=== PATIENT | male | born 1955 | race Caucasian/White ===

== ENCOUNTER 2017-06-12 09:30 | Emergency (ER) | payer OTHER ==
[~2017-06-12] VITALS: Ht 167.6 cm; Wt 87.0 kg
[~2017-06-12 09:30] MED LIST: APIX5TAB PO; ASPI1TAB69 PO; ATOR40TA16 PO; CARV25TA PO; CLIN300C5 PO; GABA300C5 PO; GEMF600T PO; HYDR-3533 PO; METF500T4 PO; NITR0.4S SL; ZOFR4TAB3 SL
[2017-06-12 09:38] VITALS: BP 112/52; PULSE 65; RESP 16; TEMP 97.4
[2017-06-12] MEDS ORDERED: VITA1000 PO (09:55)
[2017-06-12] MEDS ORDERED: LISI-519 PO (09:55)
[2017-06-12] MEDS ORDERED: ASPI81CH7 CHEW (09:55)
[2017-06-12] MEDS ORDERED: FLUO20CA12 PO (09:55)
[2017-06-12] MEDS ORDERED: LORATADINE 10 MG TAB PO ONE (10:15)
[2017-06-12] MEDS ORDERED: DEXAMETHASONE SOD PHOS 20 MG/5 ML VIAL IM ONE (10:15)
[2017-06-12] MEDS ORDERED: diphenhydrAMINE HCL 50 MG/ML VIAL IM ONE (10:15)
--- NOTE | 2017-06-12 10:20 | PD ---
HPI Chief Complaint: Skin Problem Time Seen by Provider: 10:08 Travel History International Travel<30 days: No Contact w/Intl Traveler<30days: No Traveled to known affect area: No History of Present Illness HPI 62-year-old male presents to the emergency room for evaluation of itchy, burning rash to his upper body that started yesterday. It started in the right upper arm and has since spread to his left upper arm and upper back. Patient took Benadryl last night and applied calamine lotion without significant relief in symptoms. He denies any new exposures to medication, food, or environment. He has had a lot of emotional stress lately because his dog recently got a spinal injury. Patient denies sore throat, difficulty breathing, chest pain, or shortness of breath. PFSH Past Medical History Cardiovascular Problems: Yes High Cholesterol: Yes Cerebrovascular Accident: Yes Coronary Artery Disease: Yes Diabetes: Yes Patient Takes Glucophage: No Diminished Hearing: No Hypertension: Yes Myocardial Infarction: Yes (x14 since pt was 33 years old) Tetanus Vaccination: < 5 Years Past Surgical History Cardiac Surgery: Yes (TRIPLE BYPASS) Coronary Artery Bypass Graft: Yes Pacemaker: Yes (defibulator) Tonsillectomy: Yes Social History Alcohol Use: Yes (RARE) Tobacco Use: Yes (1 PPD) Substance Use: No Allergies-Medications (Allergen,Severity, Reaction): Coded Allergies: No Known Allergies (Unverified Adverse Reaction, Unknown, 06/12/17) Reported Meds & Prescriptions Reported Meds & Active Scripts Active Reported Vitamin D-1000 (Cholecalciferol) 1,000 Unit Tab 1,000 Units PO DAILY Fluoxetine (Fluoxetine HCl) 20 Mg Capsule 20 Mg PO DAILY Lisinopril 5 Mg Tab 5 Mg PO DAILY Aspirin Children's (Aspirin) 81 Mg Chew 81 Mg CHEW DAILY Nitrostat SL (Nitroglycerin) 0.4 Mg Subl 0.4 Mg SL DIRECTED PRN 1 tablet under the tongue as needed for chest pain. Repeat every 5 minutes for a total of 3 DOSES or call 911 if NO relief. Gemfibrozil 600 Mg Tab 600 Mg PO BIDAC Take 30 minutes prior to breakfast and dinner. Gabapentin 300 Mg Cap 300 Mg PO BID Carvedilol 25 Mg Tab 25 Mg PO BID Atorvastatin (Atorvastatin Calcium) 40 Mg Tab 40 Mg PO HS Review of Systems Except as stated in HPI: all other systems reviewed are Neg Physical Exam Narrative GENERAL: Well-nourished, well-developed male in no acute distress. Afebrile. Ambulatory. SKIN: Focused skin assessment warm/dry. Multiple large erythematous maculopapular plaques to bilateral upper extremities and back. HEAD: Normocephalic. EYES: No scleral icterus. No injection or drainage. NECK: Supple, trachea midline. No JVD or lymphadenopathy. ENT: Mucosa pink and moist. No erythema or exudates. No uvular edema. No uvular , palatal, or tonsillar deviation. Airway patent. CARDIOVASCULAR: Regular rate and rhythm without murmurs, gallops, or rubs. RESPIRATORY: Breath sounds equal bilaterally. No accessory muscle use. No crackles, rales, wheezes, or rhonchi. Data Data Last Documented VS Vital Signs Date Time Temp Pulse Resp B/P (MAP) Pulse Ox O2 Delivery O2 Flow Rate FiO2 06/12/17 09:38 97.4 65 16 112/52 (72) Orders Orders Diphenhydramine Inj (Benadryl Inj) (06/12/17 10:15) Dexamethasone Inj (Decadron Inj) (06/12/17 10:15) Loratadine (Claritin) (06/12/17 10:15) MDM Medical Decision Making Medical Screen Exam Complete: Yes Emergency Medical Condition: Yes Medical Record Reviewed: Yes Differential Diagnosis Urticaria, allergic reaction, anaphylaxis Narrative Course 62-year-old male presents to the emergency room for evaluation of an itching, burning rash to his bilateral upper extremities and back hurting yesterday. Patient denies any new environmental, medication, or food exposures. Physical exam is consistent with urticaria. Likely stress-induced. No evidence of anaphylaxis. Patient given Benadryl, guarding, and Decadron in the emergency room. He'll be discharged with prescription for prednisone. Told to follow-up with primary care physician or return for worsening symptoms. He understands and agrees to plan. Diagnosis Primary Impression: Urticaria Referrals: Primary Care Physician Additional Instructions: Rest and drink plenty of fluids. Take prednisone as directed, until gone. Take Benadryl and ranitidine as directed on box for the next 24-48 hours. Follow-up with a primary care physician. Return to the emergency room for worsening symptoms. Med/Other Pt SpecificInfo: Prescription(s) given Disposition: 01 DISCHARGE HOME Condition: Stable Izabel Cummings Jun 12, 2017 10:20
[2017-06-12] MEDS ORDERED: PRED20 PO (10:21)
== END 2017-06-12 10:32 | disposition home or self-care (01) ==
LOC: PHEFT 09:30
DX: L50.9 Urticaria, unspecified (principal)
CPT/HCPCS: 96372; 99284; J1100; J1200

== ENCOUNTER 2017-08-29 07:54 | Emergency (ER) | payer OTHER ==
[~2017-08-29] VITALS: Ht 167.6 cm; Wt 88.1 kg
[~2017-08-29 07:54] MED LIST changes: -APIX5TAB PO; -ASPI1TAB69 PO; +ASPI81CH7 CHEW; -CLIN300C5 PO; +FLUO20CA12 PO; -HYDR-3533 PO; +LISI-519 PO; -METF500T4 PO; +PRED20 PO; +VITA1000 PO; -ZOFR4TAB3 SL
[2017-08-29 08:03] VITALS: BP 135/71; PULSE 70; RESP 18; O2SAT 95
[2017-08-29 08:07] VITALS: BP 135/71; PULSE 70; RESP 18; O2SAT 94
[2017-08-29 09:00] VITALS: O2SAT 95
[2017-08-29] MEDS ORDERED: predniSONE 20 MG TAB PO SCH (09:00)
--- NOTE | 2017-08-29 09:00 | PD ---
HPI Chief Complaint: Respiratory Symptoms Time Seen by Provider: 08:48 Travel History International Travel<30 days: No Contact w/Intl Traveler<30days: No Traveled to known affect area: No History of Present Illness HPI This patient complains of shortness of breath and cough and congestion. Duration is 2 days. Severity is moderate. He has symptoms that are worse with exertion. He has not had any chest pain or pressure or tightness or heaviness. No fever. No pleuritic pain. No alleviating factors. Symptoms exacerbated by his smoking for 49 years. He does not use any inhalers or oxygen or nebulizers at home. PFSH Past Medical History Hx Anticoagulant Therapy: Yes Cardiovascular Problems: Yes High Cholesterol: Yes Cerebrovascular Accident: Yes Coronary Artery Disease: Yes Diabetes: Yes Patient Takes Glucophage: No Diminished Hearing: No Hypertension: Yes Myocardial Infarction: Yes (x14 since pt was 33 years old) Past Surgical History Cardiac Surgery: Yes (TRIPLE BYPASS) Coronary Artery Bypass Graft: Yes Pacemaker: Yes (defibulator) Tonsillectomy: Yes Social History Alcohol Use: Yes (RARE) Tobacco Use: Yes (1 PPD) Substance Use: No Allergies-Medications (Allergen,Severity, Reaction): Coded Allergies: No Known Allergies (Unverified Adverse Reaction, Unknown, 06/12/17) Reported Meds & Prescriptions Reported Meds & Active Scripts Active Prednisone 20 Mg Tab 40 Mg PO DAILY Take 40 mg (2 tablets) daily for 5 days Ventolin Hfa 18 GM Inh (Albuterol Sulfate) 90 Mcg/Act Aer 2 Puff INH Q4H PRN Prednisone 20 Mg Tab 20 Mg PO DAILY 5 Days Reported Vitamin D-1000 (Cholecalciferol) 1,000 Unit Tab 1,000 Units PO DAILY Fluoxetine (Fluoxetine HCl) 20 Mg Capsule 20 Mg PO DAILY Lisinopril 5 Mg Tab 5 Mg PO DAILY Aspirin Children's (Aspirin) 81 Mg Chew 81 Mg CHEW DAILY Nitrostat SL (Nitroglycerin) 0.4 Mg Subl 0.4 Mg SL DIRECTED PRN 1 tablet under the tongue as needed for chest pain. Repeat every 5 minutes for a total of 3 DOSES or call 911 if NO relief. Gemfibrozil 600 Mg Tab 600 Mg PO BIDAC Take 30 minutes prior to breakfast and dinner. Gabapentin 300 Mg Cap 300 Mg PO BID Carvedilol 25 Mg Tab 25 Mg PO BID Atorvastatin (Atorvastatin Calcium) 40 Mg Tab 40 Mg PO HS Review of Systems General / Constitutional: No: Fever Eyes: No: Visual changes HENT: Positive: Congestion, No: Headaches Cardiovascular: No: Chest Pain or Discomfort Respiratory: Positive: Cough, Shortness of Breath, Wheezing Gastrointestinal: No: Abdominal Pain Genitourinary: No: Dysuria Musculoskeletal: No: Pain Skin: No Rash Neurologic: No: Weakness Psychiatric: No: Depression Endocrine: No: Polydipsia Hematologic/Lymphatic: No: Easy Bruising Physical Exam Narrative GENERAL: Well-nourished, well-developed patient with cough and congestion and shortness of breath . SKIN: Focused skin assessment reveals no rash and nodules. Skin is Warm and dry. HEAD: Atraumatic. Normocephalic. EYES: Pupils equal and round. No scleral icterus. No injection or drainage. ENT: No nasal bleeding or discharge. Mucous membranes pink and moist. NECK: Trachea midline. No JVD. CARDIOVASCULAR: Regular rate and rhythm. No murmur appreciated. RESPIRATORY: No accessory muscle use. Some rhonchi and expiratory wheezing. Breath sounds equal bilaterally. GASTROINTESTINAL: Abdomen soft, non-tender, nondistended. Hepatic and splenic margins not palpable. MUSCULOSKELETAL: No obvious deformities. No clubbing. No cyanosis. No edema. NEUROLOGICAL: Awake and alert. No obvious cranial nerve deficits. Motor grossly within normal limits. Normal speech. PSYCHIATRIC: Appropriate mood and affect; insight and judgment normal. Data Data Last Documented VS Vital Signs Date Time Temp Pulse Resp B/P (MAP) Pulse Ox O2 Delivery O2 Flow Rate FiO2 08/29/17 09:38 20 99 Nasal Cannula 2.00 08/29/17 08:07 70 Orders Orders Chest, Single Ap (08/29/17 ) Influenzae A/B Antigen (08/29/17 08:54) Electrocardiogram (08/29/17 08:54) Ecg Monitoring (08/29/17 08:54) Oximetry (08/29/17 08:54) Albuterol-Ipratropium Neb (Duoneb Neb) (08/29/17 09:00) Prednisone (Deltasone) (08/29/17 09:00) Iv Access Insert/Monitor (08/29/17 09:00) Complete Blood Count With Diff (08/29/17 09:00) Basic Metabolic Panel (Bmp) (08/29/17 09:00) Labs Laboratory Tests Test 08/29/17 09:10 White Blood Count 11.2 TH/MM3 Red Blood Count 4.38 MIL/MM3 Hemoglobin 13.9 GM/DL Hematocrit 41.7 % Mean Corpuscular Volume 95.2 FL Mean Corpuscular Hemoglobin 31.6 PG Mean Corpuscular Hemoglobin Concent 33.2 % Red Cell Distribution Width 14.0 % Platelet Count 224 TH/MM3 Mean Platelet Volume 8.9 FL Neutrophils (%) (Auto) 86.4 % Lymphocytes (%) (Auto) 9.1 % Monocytes (%) (Auto) 3.5 % Eosinophils (%) (Auto) 0.8 % Basophils (%) (Auto) 0.2 % Neutrophils # (Auto) 9.7 TH/MM3 Lymphocytes # (Auto) 1.0 TH/MM3 Monocytes # (Auto) 0.4 TH/MM3 Eosinophils # (Auto) 0.1 TH/MM3 Basophils # (Auto) 0.0 TH/MM3 CBC Comment DIFF FINAL Differential Comment Blood Urea Nitrogen 20 MG/DL Creatinine 1.06 MG/DL Random Glucose 134 MG/DL Calcium Level 9.3 MG/DL Sodium Level 142 MEQ/L Potassium Level 4.8 MEQ/L Chloride Level 111 MEQ/L Carbon Dioxide Level 23.5 MEQ/L Anion Gap 8 MEQ/L Estimat Glomerular Filtration Rate 70 ML/MIN [facility] Medical Decision Making Medical Screen Exam Complete: Yes Emergency Medical Condition: Yes Medical Record Reviewed: Yes Differential Diagnosis COPD, pneumonia, bronchitis Narrative Course I have reviewed the patient's electronic medical record. 9 AM I evaluated him. Ordered him a series of 3 nebulizers and a dose of prednisone Saturations running 92% on room air 1140 recheck reveals he is breathing much better and saturations are improved Chest x-ray results are reviewed with him. Has some atelectasis in the left base, less likely infectious infiltrate CBC metabolic profiles are normal Influenza swab negative We had a discussion regarding in about therapy. He very definitively does not want antibiotic therapy is absolutely necessary More likely has viral bronchitis rather than bacterial I prescribed him albuterol inhaler and 5 days of prednisone Diagnosis Primary Impression: Acute bronchitis Qualified Codes: J20.9 - Acute bronchitis, unspecified Additional Impressions: Shortness of breath Wheezing Additional Instructions: The patient was advised to follow up with their physician and return if they worsen. Med/Other Pt SpecificInfo: Prescription(s) given Scripts Prednisone (Prednisone) 20 Mg Tab 40 MG PO DAILY, #10 TAB 0 Refills Take 40 mg (2 tablets) daily for 5 days Prov: Anshul Schroeder MD 08/29/17 Albuterol 18 GM Inh (Ventolin Hfa 18 GM Inh) 90 Mcg/Act Aer 2 PUFF INH Q4H Y for SHORTNESS OF BREATH, #1 INHALER 0 Refills Prov: Anshul Schroeder MD 08/29/17 Disposition: 01 DISCHARGE HOME Condition: Stable Anshul Schroeder MD Aug 29, 2017 09:00
[2017-08-29 09:19] LABS: AUTOMATED NEUTROPHIL # 9.7 TH/MM3 (1.8-7.7); BASOPHIL % 0.2 % (0.0-2.0); EOSINOPHIL # 0.1 TH/MM3 (0-0.4); EOSINOPHIL % 0.8 % (0.0-4.0); HEMATOCRIT 41.7 % (39.0-51.0); HEMOGLOBIN 13.9 GM/DL (13.0-17.0); LYMPH % 9.1 % (9.0-44.0); MEAN CELL VOLUME 95.2 FL (80.0-100.0); MEAN CORPUSCULAR HEMOGLOBIN 31.6 PG (27.0-34.0); MEAN CORPUSCULAR HGB CONC 33.2 % (32.0-36.0); MEAN PLATELET VOLUME 8.9 FL (7.0-11.0); MONO % 3.5 % (0.0-8.0); MONOCYTE # 0.4 TH/MM3 (0-0.9); NEUT % 86.4 % (16.0-70.0); PLATELET COUNT 224 TH/MM3 (150-450); RED BLOOD COUNT 4.38 MIL/MM3 (4.50-5.90); WHITE BLOOD COUNT 11.2 TH/MM3 (4.0-11.0)
[2017-08-29] MEDS: RESP: ALBUTEROL 2.5 MG/IPRATROPIUM 0.5 MG NEB (SCH) INH (09:21)
--- NOTE | 2017-08-29 09:31 | RADRPT ---
EXAM DATE/TIME: 08/29/2017 09:01 [place] COMPARISON: CHEST PA & LAT, June 26, 2016, 22:36. INDICATIONS : Short of breath MEDICAL HISTORY : Cardiovascular disease. Myocardial infarction. SURGICAL HISTORY : CABG. Pacemaker. bilateral lower extremity stents ENCOUNTER: Initial ACUITY: 1 day PAIN SCORE: 0/10 LOCATION: Bilateral chest FINDINGS: Stable median sternotomy wires with single lead AICD device in place. Elevation of the left hemidiaph ragm with associated left lower lobe airspace disease. Cardiac silhouette is enlarged. Remainder of t he exam is unchanged. CONCLUSION: 1. Left lower lobe airspace disease and associated volume loss, likely reflecting atelectasis. Howeve r, developing pneumonia or aspiration cannot be excluded in the appropriate clinical setting. Rarely, an endobronchial lesion may result in airspace consolidation and volume loss. 2. Compensated cardiomegaly. Bahman Renae MD on August 29, 2017 at 9:26 Board Certified Radiologist. This report was verified electronically.
[2017-08-29 09:33] LABS: BICARBONATE 23.5 MEQ/L (21.0-32.0); CALCIUM 9.3 MG/DL (8.5-10.1); CREATININE 1.06 MG/DL (0.60-1.30)
[2017-08-29 09:38] VITALS: RESP 20; O2SAT 99
[2017-08-29] MEDS ORDERED: PRED20 PO (11:39)
[2017-08-29] MEDS ORDERED: VENTAER INH (11:39)
--- NOTE | 2017-08-30 18:27 | EKG ---
Date Performed: 08/29/2017 Time Performed: 08:08:20 PTAGE: 62 years EKG: Sinus rhythm WITH SINUS ARRHYTHMIA POSSIBLE LEFT ATRIAL ENLARGEMENT MARKED LEFT AXIS DEVIATION LEFT BUNDLE BRANCH BLOCK ABNORMAL ECG NO PREVIOUS TRACING DOCTOR: Kasi Burkett Interpretating Date/Time 08/30/2017 18:25:23
== END 2017-08-29 12:10 | disposition home or self-care (01) ==
LOC: NEPC 07:54
DX: J20.9 Acute bronchitis, unspecified (principal); R06.02 Shortness of breath; R06.2 Wheezing; I10 Essential (primary) hypertension; E78.00 Pure hypercholesterolemia, unspecified; I25.10 Atherosclerotic heart disease of native coronary artery without angina pectoris; E11.9 Type 2 diabetes mellitus without complications; I25.2 Old myocardial infarction; F17.210 Nicotine dependence, cigarettes, uncomplicated; Z86.73 Personal history of transient ischemic attack (TIA), and cerebral infarction without residual deficits; Z95.0 Presence of cardiac pacemaker; Z95.1 Presence of aortocoronary bypass graft; Z79.82 Long term (current) use of aspirin; Z79.899 Other long term (current) drug therapy
CPT/HCPCS: 71045; 80048; 85025; 87804; 93005; 94640; 94664; 99285; J7512

== ENCOUNTER 2017-12-12 04:31 | Inpatient (IN) | payer OTHER, MEDICARE ==
[2017-12-12] VITALS (12 sets, daily range): BP systolic 108–153; BP diastolic 53–80; PULSE 53–75; RESP 16–20; TEMP 97.7–98.5; O2SAT 95–98
[~2017-12-12] VITALS: Ht 167.6 cm; Wt 92.0 kg
[~2017-12-12 04:31] MED LIST changes: +VENTAER INH
[2017-12-12] MEDS ORDERED: IODIXANOL 320 MG/ML 10 ML VIAL (for Rad CT) IVCONTRAST ONE (04:32)
[2017-12-12] MEDS ORDERED: SODIUM CHLOR 0.9% 1000 ML INJ 1,000 ML IV ONE (04:34)
--- NOTE | 2017-12-12 04:58 | RADRPT ---
EXAM DATE: 12/12/2017 4:52 AM EDT AGE/SEX: 62 years / Male INDICATIONS: Stroke Alert. Slurred speech with right sided weakness. CLINICAL DATA: This is the patient's initial encounter. Patient reports that signs and symptoms have been present for 1 day and indicates a pain score of 0/10. MEDICAL/SURGICAL HISTORY: Cardiovascular disease. Hypertension. Diabetes mellitus type II. CVA CABG. Pacemaker. RADIATION DOSE: 56.35 CTDI (mGy) COMPARISON: No prior exams available for comparison. Report was called by myself to Dr. Garrett at 4:55 hours. TECHNIQUE: CT of the head without contrast. Using automated exposure control and adjustment of the mA and/or kV according to patient size, radiation dose was kept as low as reasonably achievable to ob tain optimal diagnostic quality images. FINDINGS: There is no evidence for intracranial hemorrhage, mass effect, mass lesions, edema, or extr a-axial fluid collections. The visualized bony structures appear intact. The ventricles are normal size for the patient's age. There are no signs of acute infarction for technique. There is old ence phalomalacia left frontal lobe measures 3.1 cm in size extends all the way to anterior parietal lobe watershed distribution. CONCLUSION: Old infarction on the left and no acute hemorrhage or mass effect. Electronically signed by: Helio Garcia MD 12/12/2017 4:56 AM EDT
[2017-12-12 05:04] LABS: PROTHROMBIN TIME - PATIENT 10.1 SEC (9.8-11.6)
--- NOTE | 2017-12-12 05:33 | RADRPT ---
CORRECTED REPORT: Dec 13 2017 EXAM DATE: 12/12/2017 5:15 AM EDT AGE/SEX: 62 years / Male INDICATIONS: Stroke Alert. Slurred speech with right sided weakness. CLINICAL DATA: This is the patient's initial encounter. Patient reports that signs and symptoms have been present for 1 day and indicates a pain score of 0/10. MEDICAL/SURGICAL HISTORY: Cardiovascular disease. Hypertension. Diabetes mellitus type II. CVA CABG. Pacemaker. RADIATION DOSE: 10.60 CTDI (mGy) ; Combined studies COMPARISON: No prior exams available for comparison. TECHNIQUE: Volumetric scanning was performed using a multi-row detector CT scanner during bolus infus ion of 100 ml Visipaque 320 (iodixanol) nonionic water-soluble contrast as a cumulative dose for mult iple exams. The data was post processed with a variety of visualization algorithms including full vol ume maximum intensity projection, multi-planar sliding thin slab reformation, curved planar reformati on, and surface rendering techniques. Using automated exposure control and adjustment of the mA and/o r kV according to patient size, radiation dose was kept as low as reasonably achievable to obtain opt imal diagnostic quality images. FINDINGS: There are atherosclerotic changes involving multiple small vessel branches bilaterally particularly M CA's without any abrupt cut off or filling defects. The left MCA branches demonstrate fairly signific ant atherosclerotic changes without any definite filling defects or abrupt cut off, however there chinyere ears to be diminished flow involving the left distal MCA branches as compared to the right side. Athe rosclerotic plaquing and calcifications are present involving bilateral internal carotid arteries par ticularly in the region of the ciphon. There is an approximate 1.2 cm submandibular duct stone on the right side. There are tiny nodules within the right thyroid gland most likely benign. CONCLUSION: 1. Diminished flow identified within the left MCA appears to be related to fairly significant atheros clerotic disease without any filling defects or abrupt cut off. Electronically signed by: Helio Garcia MD 12/12/2017 5:31 AM EDT Electronically signed by: Helio Garcia MD 12/13/2017 8:38 PM EDT
[2017-12-12 05:39] LABS: TROPONIN I 0.3 NG/ML (0.02-0.05)
--- NOTE | 2017-12-12 05:58 | PD ---
HPI Chief Complaint: Stroke Alert Time Seen by Provider: 04:34 Travel History International Travel<30 days: No Contact w/Intl Traveler<30days: No Traveled to known affect area: No History of Present Illness HPI 62-year-old male presents to the emergency department from home by EMS transport after noticing at 3:50 AM that he had increased weakness to the right upper extremity and right lower extremity. Patient has history of peripheral neuropathy and uses a cane at all times but denies having any previous weakness to the right arm or right leg. Upon EMS arrival patient was identified to be flaccid to the right arm and right leg and a stroke alert was called from the field. Patient denies any headache change in mentation visual disturbance difficulty swallowing or change in speech. Patient denies any left-sided symptoms. Patient denies previous stroke. Patient has extensive past medical history including CAD NM and multiple stents defibrillator placement 2 diabetes dyslipidemia and hypertension. Patient takes no blood thinning agents except an aspirin daily. Patient had no injury or fall. Patient denies any coagulopathy or clotting disorder. Patient states that he typically is awake all night and sleeps during the day. Patient had been watching TV for several hours but has been moving about in his chair without any difficulty and noticed for the first time when he was trying to stand up to go brush his teeth in preparation for going to bed that he had significant right upper extremity and right lower extremity weakness. Patient denies having any fall. Paramedics report that upon their arrival and assessment patient clearly had flaccid right upper extremity and right lower extremity. Patient presents here with inability to use the right upper extremity or right lower extremity. Patient has no assembler strength. Patient seems to have mild neglect. Patient has no other concerns or complaints. Patient denies chest pain or shortness of breath. Patient had no nausea or vomiting. Patient denies any abdominal pain or recent febrile illness. PFSH Past Medical History Narrative Medical Review of medical record CAD NM dyslipidemia hypertension CVA patient denies diabetes CAD AICD cardiac catheterization with multiple stents CABG tobaccoism; nursing notes reviewed Hx Anticoagulant Therapy: Yes Cardiovascular Problems: Yes High Cholesterol: Yes Cerebrovascular Accident: Yes Coronary Artery Disease: Yes Diabetes: Yes Diminished Hearing: No Hypertension: Yes Myocardial Infarction: Yes (x14 since pt was 33 years old) Past Surgical History Cardiac Surgery: Yes (TRIPLE BYPASS) Coronary Artery Bypass Graft: Yes Pacemaker: Yes (defibulator) Tonsillectomy: Yes Social History Alcohol Use: Yes (RARE) Tobacco Use: Yes (1 PPD) Substance Use: No Allergies-Medications (Allergen,Severity, Reaction): Coded Allergies: No Known Allergies (Unverified Adverse Reaction, Unknown, 12/12/17) Reported Meds & Prescriptions Reported Meds & Active Scripts Active Reported Vitamin D-1000 (Cholecalciferol) 1,000 Unit Tab 1,000 Units PO DAILY Probiotic (Lactobacillus Acidophilus) 10 Billion Cell Cap 3 Cap PO DAILY Mirtazapine 7.5 Mg Tab 7.5 Mg PO HS Vitamin D-1000 (Cholecalciferol) 1,000 Unit Tab 1,000 Units PO DAILY Fluoxetine (Fluoxetine HCl) 20 Mg Capsule 20 Mg PO DAILY Lisinopril 5 Mg Tab 5 Mg PO DAILY Aspirin Children's (Aspirin) 81 Mg Chew 81 Mg CHEW DAILY Nitrostat SL (Nitroglycerin) 0.4 Mg Subl 0.4 Mg SL DIRECTED PRN 1 tablet under the tongue as needed for chest pain. Repeat every 5 minutes for a total of 3 DOSES or call 911 if NO relief. Gemfibrozil 600 Mg Tab 600 Mg PO BIDAC Take 30 minutes prior to breakfast and dinner. Gabapentin 300 Mg Cap 300 Mg PO BID Carvedilol 25 Mg Tab 25 Mg PO BID Atorvastatin (Atorvastatin Calcium) 40 Mg Tab 40 Mg PO HS Review of Systems Except as stated in HPI: all other systems reviewed are Neg General / Constitutional: No: Fever Eyes: No: Diploplia, Blurred Vision HENT: No: Headaches Cardiovascular: No: Chest Pain or Discomfort Respiratory: No: Shortness of Breath Gastrointestinal: No: Nausea, Vomiting Genitourinary: No: Flank Pain Musculoskeletal: Positive: Weakness, No: Pain Neurologic: Positive: Weakness, Focal Abnormalities, No: Dizziness, Syncope, Coordination Problem, Ataxia, Headache, Change in Mentation, Slurred Speech, Paresthesia, Seizures Psychiatric: No: Anxiety Endocrine: No: Heat Intolerance, Cold Intolerance Hematologic/Lymphatic: No: Easy Bruising Physical Exam Narrative GENERAL: Well-developed well-nourished elderly male in no acute distress no respiratory distress; GCS 15 SKIN: Warm and dry. HEAD: Atraumatic. Normocephalic. EYES: Pupils equal and round. Extraocular muscles intact. No scleral icterus. No injection or drainage. ENT: No nasal bleeding or discharge. Mucous membranes pink and moist. NECK: Trachea midline. No JVD. CARDIOVASCULAR: Regular rate and rhythm. RESPIRATORY: No accessory muscle use. Clear to auscultation. Breath sounds equal bilaterally. GASTROINTESTINAL: Abdomen soft, non-tender, nondistended. Hepatic and splenic margins not palpable. MUSCULOSKELETAL: Extremities without clubbing, cyanosis, or edema. No obvious deformities. NEUROLOGICAL: Awake and alert. No obvious cranial nerve deficits. Motor grossly within normal limits. Five out of 5 muscle strength in the left arm and left leg; right upper extremity and right lower extremity are flaccid there is no movement no attempted movement. Unable to perform pronator drift with the right upper extremity no pronator drift with the left upper extremity. Unable to perform limb ataxia function of the right upper extremity; no limb ataxia of the left upper or lower extremity. Normal speech. PSYCHIATRIC: Appropriate mood and affect; insight and judgment normal. Data Data Last Documented VS Vital Signs Date Time Temp Pulse Resp B/P (MAP) Pulse Ox O2 Delivery O2 Flow Rate FiO2 12/12/17 04:37 98.0 62 18 124/60 (81) 95 12/12/17 04:30 21 Orders Orders Diet Npo (12/12/17 Breakfast) Activity Bed Rest (12/12/17 ) Electrocardiogram (12/12/17 ) I-Stat Profile (12/12/17 04:34) Prothrombin Time / Inr (Pt) (12/12/17 04:34) Act Partial Throm Time (Ptt) (12/12/17 04:34) Complete Blood Count With Diff (12/12/17 04:34) Fibrinogen (12/12/17 04:34) Creatine Kinase (Cpk) (12/12/17 04:34) Troponin I (12/12/17 04:34) Ua Includes Microscopic (12/12/17 04:34) Drug Screen, Random Urine (12/12/17 04:34) Type And Screen (12/12/17 04:34) Ct Brain W/O Iv Contrast(Rout) (12/12/17 ) Cta Brain W Iv Contrast W 3d (12/12/17 04:34) Cta Neck W Iv Contrast W 3d (12/12/17 04:34) Consult Neurology (12/12/17 ) Blood Glucose (12/12/17 04:34) Ecg Monitoring (12/12/17 04:34) Neuro Checks Q2HX12,Q4H (12/12/17 04:34) Nursing Bedside Swallow Assess .ONCE (12/12/17 04:34) Iv Access Insert/Monitor (12/12/17 04:34) NPO (12/12/17 04:34) Oximetry (12/12/17 04:34) Resp Oxygen Nc Stroke (12/12/17 ) Sodium Chlor 0.9% 1000 Ml Inj (Ns 1000 M (12/12/17 04:34) Cath For Specimen (12/12/17 04:34) (Hub Use Only)Inp Phy Cons/Ref (12/12/17 ) Iodixanol 320 Inj (Rad Ct) (Visipaque 32 (12/12/17 04:32) Heparin-D5w 25,000 U/250 Ml (Heparin-D5w (12/12/17 06:00) Cbc No Diff, Includes Plts (12/15/17 06:00) Occult Blood (Hemoccult) Stool (12/12/17 05:52) Admit To Inpatient (12/12/17 ) Code Status (12/12/17 06:09) Vital Signs (Adult) Q4H (12/12/17 06:09) Nih Stroke Scale - Nihss .On admission and discharge (12/12/17 06:09) Neuro Checks Q4H (12/12/17 06:09) Ot Request For Service (12/12/17 06:09) Consult Pt Eval & Treat (12/12/17 06:09) Case Management Consult (12/12/17 ) Activity Bed Rest (12/12/17 06:09) Nursing Bedside Swallow Assess .ONCE (12/12/17 06:09) Scd Bilateral/Knee High LOUIE.QSHIFT (12/12/17 06:09) Hemoglobin (Hgb) A1c (12/12/17 10:00) Lipid Profile (12/13/17 10:00) Echo 2d Comp With Doppler (12/12/17 ) Resp Oxygen Nc Stroke (12/12/17 ) ^ Hold Medication (12/12/17 06:09) Sodium Chloride 0.9% Flush (Ns Flush) (12/12/17 09:00) Sodium Chloride 0.9% Flush (Ns Flush) (12/12/17 06:15) Sodium Chlor 0.9% 1000 Ml Inj (Ns 1000 M (12/12/17 06:09) Enalaprilat Inj (Vasotec Inj) (12/12/17 06:15) Aspirin Chew (Aspirin Chew) (12/12/17 09:00) Pravastatin (Pravachol) (12/12/17 21:00) Bedside Glucose LOUIE.CSUGAR (12/12/17 06:09) ^ Discontinue Insulin Orders (12/12/17 06:09) Insulin Aspart Supplemtl Scale (Novolog (12/12/17 08:00) Dextrose 50% In Gonzalo (Vial) Inj (D50w (Vi (12/12/17 06:15) Glucagon Inj (Glucagon Inj) (12/12/17 06:15) Plate Cutter / Telemetry LOUIE.Q8H (12/12/17 06:09) Consult Stroke Navigator (12/12/17 ) Inpatient Certification (12/12/17 ) Activity Oob With Assistance (12/12/17 06:09) Intake + Output LOUIE.QSHIFT (12/12/17 06:09) Sodium Chloride 0.9% Flush (Ns Flush) (12/12/17 06:15) Sodium Chloride 0.9% Flush (Ns Flush) (12/12/17 09:00) Comprehensive Metabolic Panel (12/13/17 06:00) Complete Blood Count With Diff (12/13/17 06:00) Troponin I (12/12/17 10:00) Troponin I (12/12/17 16:00) Acetaminophen (Tylenol) (12/12/17 06:15) Docusate Sodium-Senna (Jennifer-Colace) (12/12/17 09:00) Magnesium Hydroxide Liq (Milk Of Magnesi (12/12/17 06:15) Sennosides (Senokot) (12/12/17 06:15) Bisacodyl Supp (Dulcolax Supp) (12/12/17 06:15) Lactulose Liq (Lactulose Liq) (12/12/17 06:15) Admit Order (Ed Use Only) (12/12/17 ) Plate Cutter / Telemetry LOUIE.Q8H (12/12/17 06:16) Activity Bed Rest (12/12/17 06:16) Notify Dr: Other (12/12/17 06:16) Consult Neurology (12/12/17 ) Labs Laboratory Tests Test 12/12/17 04:30 12/12/17 06:08 Bedside Hemoglobin 13.6 G/DL Bedside Hematocrit 40.0 % Prothrombin Time 10.1 SEC Prothromb Time International Ratio 1.0 RATIO Activated Partial Thromboplast Time 26.1 SEC Fibrinogen 317 mg/dL Bedside Sodium 142 MMOL/L Bedside Potassium 4.1 MMOL/L Bedside Chloride 110 MMOL/L Bedside Blood Urea Nitrogen 25 MG/DL Bedside Creatinine 0.9 MG/DL Bedside Glucose 118 MG/DL Total Creatine Kinase 82 U/L Troponin I 0.30 NG/ML White Blood Count 8.1 TH/MM3 Red Blood Count 4.37 MIL/MM3 Hemoglobin 13.9 GM/DL Hematocrit 41.5 % Mean Corpuscular Volume 95.1 FL Mean Corpuscular Hemoglobin 31.9 PG Mean Corpuscular Hemoglobin Concent 33.5 % Red Cell Distribution Width 13.2 % Platelet Count 212 TH/MM3 Mean Platelet Volume 10.2 FL Neutrophils (%) (Auto) 50.4 % Lymphocytes (%) (Auto) 37.2 % Monocytes (%) (Auto) 8.5 % Eosinophils (%) (Auto) 3.3 % Basophils (%) (Auto) 0.6 % Neutrophils # (Auto) 4.1 TH/MM3 Lymphocytes # (Auto) 3.0 TH/MM3 Monocytes # (Auto) 0.7 TH/MM3 Eosinophils # (Auto) 0.3 TH/MM3 Basophils # (Auto) 0.0 TH/MM3 CBC Comment DIFF FINAL Differential Comment MDM Medical Decision Making Medical Screen Exam Complete: Yes Emergency Medical Condition: Yes Medical Record Reviewed: Yes Interpretation(s) Last Impressions Neck CTA 12/12/17 0434 Signed Impressions: CONCLUSION: 1. Atherosclerotic plaquing without any significant stenosis. Head CTA 12/12/17 0434 Signed Impressions: CONCLUSION: 1. Diminished flow identified within the left MCA appears to be related to rolly rly significant atherosclerotic disease without any filling defects or abrupt c ut off. Head CT 12/12/17 0000 Signed Impressions: CONCLUSION: Old infarction on the left and no acute hemorrhage or mass effect. CBC & BMP Diagram 12/12/17 06:08 Vital Signs Date Time Temp Pulse Resp B/P (MAP) Pulse Ox O2 Delivery O2 Flow Rate FiO2 12/12/17 04:37 98.0 62 18 124/60 (81) 95 12/12/17 04:30 98 21 12/12/17 04:30 98 21 EKG: Normal sinus rhythm left atrial enlargement left bundle branch block; noted on EKG from Differential Diagnosis CVA, TIA, dissection, malingering Narrative Course Patient arrival at 4:30 AM; stroke alert called from the found regarding patient with new onset right sided flaccid right upper extremity and right lower extremity Neurologic exam is consistent with NIHSS: 10, no movement of the right upper extremity 4 no movement of the right lower extremity 4 suspect field deficit of the right lateral lower field will reassess upon patient's return from CT limb ataxia [address] patient noted to have movement of the right upper extremity and right lower extremity plan had been to administer TPA with TPA as held due to marked improvement of patient's motor function of the right upper extremity and right lower extremity Upon return to exam room patient continues to show improvement of function of right upper extremity and right lower extremity @ approx 5:08 call placed to neurologist who recommends no administration of TPA at this time but to wait 30 minutes and patient does not have complete resolution or near resolution of symptoms to offer to administer TPA to the patient if patient is desirous of proceeding with TPA otherwise if symptoms have essentially resolved recommends administering heparin @ 5:45 cancelled tpa; NIHSS 1, discussed with Dr Garrett --CT and cta -- give heparin no bolus --will see in consultation Patient with spouse at bedside are aware of plan to not admit to TPA and to administer heparin with plan for admission; is at bedside and patient and identify that he has had issue with vision from his right eye for approximately 3 months and has not yet gone to see an propeller layout worker. Patient states it does not bother him and states that they have not pursued this and this is not a new finding. Physician Communication Physician Communication stroke alert --Dr Garrett prior to patient arrival and then after patient arrival@ 4:41; call placed to [facility] for admission Diagnosis Primary Impression: TIA (transient ischemic attack) Qualified Codes: G45.9 - Transient cerebral ischemic attack, unspecified Admitting Information Admitting Physician Requests: Admit Madhavi Sims MD December 12, 2017 05:58
[2017-12-12] MEDS ORDERED: VITA1000 PO (06:04)
[2017-12-12] MEDS ORDERED: MIRT1TAB PO (06:04)
[2017-12-12] MEDS ORDERED: LACTCAP8 PO (06:04)
[2017-12-12] MEDS: SODIUM CHLOR 0.9% 1000 ML INJ 1,000 ML IV SCH ×2 (06:09→18:25)
--- NOTE | 2017-12-12 06:11 | RADRPT ---
EXAM DATE: 12/12/2017 6:06 AM EDT AGE/SEX: 62 years / Male INDICATIONS: Stroke Alert. Slurred speech with right sided weakness. CLINICAL DATA: This is the patient's initial encounter. Patient reports that signs and symptoms have been present for 1 day and indicates a pain score of 0/10. MEDICAL/SURGICAL HISTORY: Cerebrovascular disease. Hypertension. Diabetes mellitus type II. CVA CABG. Pacemaker. RADIATION DOSE: 10.60 CTDI (mGy) ; Combined studies COMPARISON: No prior exams available for comparison. TECHNIQUE: Volumetric scanning was performed using a multirow detector CT scanner during bolus infus ion of 100 ml Visipaque 320 (iodixanol) nonionic water-soluble contrast as a cumulative dose for mul tiple exams. The data was postprocessed with a variety of visualization algorithms including full-v olume maximum intensity projection, multiplanar sliding thin-slab reformation, curved-planar reformat ion, and surface-rendering techniques. Using automated exposure control and adjustment of the mA and /or kV according to patient size, radiation dose was kept as low as reasonably achievable to obtain o ptimal diagnostic quality images. Elevated flow velocities and ICA/CCA ratios have been found to correlate with increased degrees of ve ssel stenosis, calculated as percentage of diameter relative to a normal segment of distal ICA/CCA. FINDINGS: There is mild atherosclerotic plaquing involving bilateral internal carotid arteries at the junction of the bifurcation without any significant stenosis on either side. The vertebral arteries appear int act as well. There are no filling defects. CONCLUSION: 1. Atherosclerotic plaquing without any significant stenosis. Electronically signed by: Helio Garcia MD 12/12/2017 6:10 AM EDT
[2017-12-12] MEDS ORDERED: SODIUM CHLORIDE 0.9% FLUSH 10 ML FLUSH IV FLUSH PRN ×2 (06:15)
[2017-12-12] MEDS ORDERED: SENNOSIDES 8.6 MG TAB PO PRN (06:15)
[2017-12-12] MEDS ORDERED: ENALAPRILAT 1.25 MG/ML VIAL IV PUSH PRN (06:15)
[2017-12-12] MEDS ORDERED: ACETAMINOPHEN 325 MG TAB PO PRN (06:15)
[2017-12-12] MEDS ORDERED: BISACODYL 10 MG SUPP RECTAL PRN (06:15)
[2017-12-12] MEDS ORDERED: MAGNESIUM HYDROXIDE SUSP 30 ML CUP PO PRN (06:15)
[2017-12-12] MEDS ORDERED: GLUCAGON 1 MG/ML VIAL OTHER PRN ×2 (06:15→11:45)
[2017-12-12] MEDS ORDERED: LACTULOSE SYRUP 20 GM/30 ML CUP PO PRN (06:15)
[2017-12-12] MEDS ORDERED: DEXTROSE 50% IN WATER 50 ML VIAL(D50) IV PUSH PRN ×2 (06:15→11:45)
[2017-12-12 06:21] LABS: AUTOMATED NEUTROPHIL # 4.1 TH/MM3 (1.8-7.7); BASOPHIL % 0.6 % (0.0-2.0); EOSINOPHIL # 0.3 TH/MM3 (0-0.4); EOSINOPHIL % 3.3 % (0.0-4.0); HEMATOCRIT 41.5 % (39.0-51.0); HEMOGLOBIN 13.9 GM/DL (13.0-17.0); LYMPH % 37.2 % (9.0-44.0); MEAN CELL VOLUME 95.1 FL (80.0-100.0); MEAN CORPUSCULAR HEMOGLOBIN 31.9 PG (27.0-34.0); MEAN CORPUSCULAR HGB CONC 33.5 % (32.0-36.0); MEAN PLATELET VOLUME 10.2 FL (7.0-11.0); MONO % 8.5 % (0.0-8.0); MONOCYTE # 0.7 TH/MM3 (0-0.9); NEUT % 50.4 % (16.0-70.0); PLATELET COUNT 212 TH/MM3 (150-450); RED BLOOD COUNT 4.37 MIL/MM3 (4.50-5.90); RED CELL DISTRIBUTION WIDTH 13.2 % (11.6-17.2); WHITE BLOOD COUNT 8.1 TH/MM3 (4.0-11.0)
[2017-12-12] MEDS: HEPARIN-D5W 25,000 U/250 ML 250 ML IV PRN (07:08)
[2017-12-12] MEDS: INSULIN ASPART SUPPLEMENTAL SCALE SQ SCH ×5 (07:29→21:42)
--- NOTE | 2017-12-12 07:51 | EKG ---
Date Performed: 12/12/2017 Time Performed: 06:42:21 PTAGE: 62 years EKG: Sinus rhythm POSSIBLE LEFT ATRIAL ENLARGEMENT LEFT AXIS DEVIATION LEFT BUNDLE BRANCH BLOCK ABNORMAL ECG NO PREVIOUS TRACING DOCTOR: Deniz Redmond Interpretating Date/Time 12/12/2017 07:49:38
[2017-12-12 08:57] LABS: BILIRUBIN, URINE NEG (NEG); BLOOD, URINE NEG (NEG); GLUCOSE,URINE NEG (NEG); KETONE, URINE NEG (NEG); MUCUS URINE FEW /lpf (OCC); NITRITE,URINE NEG (NEG); PH, URINE 6.5 (5.0-8.5); SQUAMOUS EPITHELIAL CELL URINE <1 /hpf (0-5); URINE COLOR LIGHT-YELLOW (YELLW/STRAW); URINE LEUKOCYTE ESTERASE NEG (NEG)
[2017-12-12] MEDS ORDERED: ASPIRIN 81 MG CHEW TAB PO SCH (09:00)
[2017-12-12] MEDS ORDERED: SODIUM CHLORIDE 0.9% FLUSH 10 ML FLUSH IV FLUSH SCH (09:00)
[2017-12-12] MEDS: SODIUM CHLORIDE 0.9% FLUSH 10 ML FLUSH IV FLUSH SCH ×2 (09:00→21:43)
[2017-12-12] MEDS: DOCUSATE SODIUM 50 MG/SENNA 8.6 MG TAB PO SCH ×2 (09:00→21:38)
--- NOTE | 2017-12-12 09:44 | MB ---
cc: Jozef Garrett MD DATE: 12/12/2017 HISTORY OF PRESENT ILLNESS: This is a 62-year-old left-handed man with hypertension, noninsulin dependent diabetes, hypercholesterolemia, NE, CABG, peripheral vascular disease status post stent, AICD. He sees Dr. Ruff. He was on Eliquis, but was stopped a year ago. He does not have a known history of stroke according to him, but last night he was watching TV at about 3 a.m. when he tried to get out of his chair and he was weak on the right. He got up to walk across the room, but got progressively weak on the right. When he came in the ER, a stroke alert was called last night because he was flaccid on the right and then went down a CAT scan which showed an old left MCA infarct. When he came back from CAT scan, he had almost complete return of his function and within an hour, his NIH score had dropped down to 1 and as such, he did not get tPA. SOCIAL HISTORY: He is not a smoker or a drinker. He lives with his . FAMILY HISTORY: Negative for cancer, seizure or stroke. REVIEW OF SYSTEMS: He denies any history of known atrial fibrillation, renal, hepatic, pulmonary disease, thyroid disease, lupus, ulcer, cancer, seizure, prior stroke, chest pain, palpitations. He does have a bit of a headache this morning, which is unusual for him. ALLERGIES: NO KNOWN DRUG ALLERGIES. MEDICATIONS: 1. Vitamin D. 2. Mirtazapine. 3. Fluoxetine, although he denies any depression. 4. Lisinopril. 5. 81 of aspirin. 6. Gemfibrozil. 7. Gabapentin. 8. Carvedilol. 9. Atorvastatin. PAST MEDICAL HISTORY: He has never been admitted in hospital before. EKG shows possible left atrial enlargement, left bundle branch block, sinus rhythm. PHYSICAL EXAMINATION: VITAL SIGNS: He is afebrile, 68, 16, 146/80. NECK: There were no carotid bruits. HEART: Regular rhythm. I did not detect a murmur. NEUROLOGIC: Pupils are equal. Visual jara are full. Extraocular movements intact without nystagmus. Face is symmetric with normal sensation. Tongue was midline. Speech was normal. He could name, repeat, calculate, follow all commands well. There is a slight drift in the right upper extremity, but he had normal strength in the upper and lower extremities bilaterally. DTRs are absent throughout. Toes are downgoing bilaterally. Pinprick seems to be diminished distally in the feet, but otherwise appeared to be intact throughout the upper and lower extremities bilaterally and symmetric. He is minimally ataxic on [id number] on the right, not on the left. Not ataxic on [id number]. LABORATORY DATA: CBC is normal. Urine drug screen pending. UA negative. Coags normal. Basic metabolic profile essentially normal. Glucose 118. Troponin 0.3, although he denied any chest pain. He had a CAT scan of his brain that showed an old left infarct. CTA of the neck showed no significant stenosis. CT of the head showed some diminished flow in the left related to fairly significant atherosclerotic disease without any filling defect or abrupt cut off. Review of the CT films, there is a fairly significant old left MCA infarct frontotemporal region, although he never noticed any old stroke-like symptoms or trouble with his speech. Unfortunately, the CTA films are not on the system to be reviewed. IMPRESSION: Major left hemisphere transient ischemic attack, possibly a small stroke. He is just a little bit ataxic in the right upper extremity. Old significant infarct. He was on Eliquis before. That would be an option to restart him on that. What I would like to do is have Dr. Ruff see him as she is familiar which his cardiac history and he was on Eliquis at one time. She might be able to shed light if he ever had any atrial fibrillation. His troponin is increased and that is going to be repeated here. Keep his head of bed flat today. I tried to review his imaging films and will check his LDL. Continue statin, interrogate his pacer. I will be following him with you in the hospital. For now, he is on IV heparin. An NIH stroke scale is 1 now. We will check an echo on him here and have cardiology see him as noted. We will also check an EEG with the old stroke to make sure there is no evidence for seizure activity. Unfortunately, he cannot have an MRI with the [facility]. MD JUDY Cooper/BETH , 09:18 AM , 09:43 AM
[2017-12-12] MEDS ORDERED: SODIUM CHLOR 0.9% 1000 ML INJ 1,000 ML IV SCH (10:00)
[2017-12-12 11:11] LABS: TROPONIN I 0.19 NG/ML (0.02-0.05)
[2017-12-12] MEDS ORDERED: MORPHINE SULFATE 2 MG/ML SYRINGE IV PUSH ONE (11:30)
--- NOTE | 2017-12-12 11:40 | HHI.HP ---
[facility] Angel Liu MD Admission Diagnosis TIA Diagnoses: (1) TIA (transient ischemic attack) Diagnosis: Principal Travel History International Travel<30 Days: No Contact w/Intl Traveler <30 Da: No Traveled to Known Affected Are: No History of Present Illness Mr. Castro is a 62 year old male. He was brought to the emergency department last night after having right upper and lower extremity weakness. His right arm is flaccid. He has no previous history of CVA symptoms but imaging shows possible small infarctions in the past. This patient has an extensive vascular history including coronary artery disease and myocardial infarction. Family history is positive for coronary artery disease and myocardial infarction. When seen in the emergency department this morning he has a return of function of his right arm. She will work with physical therapy but presently is on bedrest. No complaints of new neurological findings. He cannot obtain an MRI secondary to pacemaker. Review of Systems Constitutional: DENIES: Fatigue, Fever, Chills Eyes: DENIES: Blurred vision, Diplopia, Eye inflammation, Eye pain Ears, nose, mouth, throat: DENIES: Hearing loss, Vertigo, Nasal discharge Respiratory: DENIES: Cough, Wheezing, Shortness of breath Cardiovascular: DENIES: Chest pain, Palpitations, Syncope, Dyspnea on Exertion Gastrointestinal: DENIES: Abdominal pain, Black stools, Bloody stools, Constipation Musculoskeletal: DENIES: Joint pain, Muscle aches, Stiffness, Joint Swelling Integumentary: DENIES: Abnormal pigmentation, Nail changes, Pruritus, Rash Hematologic/lymphatic: DENIES: Bruising, Lymphadenopathy Immunologic/allergic: DENIES: Eczema, Urticaria Neurologic: COMPLAINS OF: Abnormal gait, Headache, Localized weakness, Paresthesias Psychiatric: DENIES: Anxiety, Confusion, Hallucinations Past Family Social History Past Medical History Coronary artery disease Old myocardial infarction (x14) Coronary stents Hyperlipidemia Hypertension AICD present Diabetes mellitus type 2 Past Surgical History CABGx3 AICD Tonsillectomy Reported Medications Reported Meds & Active Scripts Active Reported Vitamin D-1000 (Cholecalciferol) 1,000 Unit Tab 1,000 Units PO DAILY Probiotic (Lactobacillus Acidophilus) 10 Billion Cell Cap 3 Cap PO DAILY Mirtazapine 7.5 Mg Tab 7.5 Mg PO HS Vitamin D-1000 (Cholecalciferol) 1,000 Unit Tab 1,000 Units PO DAILY Fluoxetine (Fluoxetine HCl) 20 Mg Capsule 20 Mg PO DAILY Lisinopril 5 Mg Tab 5 Mg PO DAILY Aspirin Children's (Aspirin) 81 Mg Chew 81 Mg CHEW DAILY Nitrostat SL (Nitroglycerin) 0.4 Mg Subl 0.4 Mg SL DIRECTED PRN 1 tablet under the tongue as needed for chest pain. Repeat every 5 minutes for a total of 3 DOSES or call 911 if NO relief. Gemfibrozil 600 Mg Tab 600 Mg PO BIDAC Take 30 minutes prior to breakfast and dinner. Gabapentin 300 Mg Cap 300 Mg PO BID Carvedilol 25 Mg Tab 25 Mg PO BID Atorvastatin (Atorvastatin Calcium) 40 Mg Tab 40 Mg PO HS Allergies: Coded Allergies: No Known Allergies (Unverified Adverse Reaction, Unknown, 12/12/17) Active Ordered Medications Administered Medications Medications (Trade) Dose Ordered Sig/Ra Route PRN Reason Start Time Stop Time Status Last Admin Dose Admin Heparin Sodium/ Dextrose 250 ml @ 11 mls/hr TITRATE PRN IV Coagulation Management 12/12/17 06:00 12/12/17 07:08 Aspirin (Aspirin Chew) 81 mg DAILY PO 12/12/17 09:00 12/12/17 09:00 Acetaminophen (Tylenol) 650 mg Q6H PRN PO PAIN SCALE 1 TO 2 12/12/17 06:15 12/12/17 08:59 Family History CAD and CA in father and brother Medical history in mother is unknown Social History Alcohol Use: Yes (RARE) Tobacco Use: Yes (1 PPD) Substance Use: No Physical Exam Vital Signs Vital Signs Date Time Temp Pulse Resp B/P (MAP) Pulse Ox O2 Delivery O2 Flow Rate FiO2 12/12/17 09:09 75 19 153/71 (98) 96 Room Air 12/12/17 07:48 96 21 12/12/17 07:21 98.5 68 16 146/80 (102) 96 Room Air 12/12/17 06:52 98 Room Air 12/12/17 06:37 98.0 65 16 138/66 (90) 96 Room Air 12/12/17 04:37 98.0 62 18 124/60 (81) 95 12/12/17 04:30 98 21 12/12/17 04:30 98 21 Physical Exam GENERAL: NAD, A&Ox3 HEAD: Normocephalic. NECK: Supple, trachea midline. No lymphadenopathy. EYES: No scleral icterus. No injection or drainage. CARDIOVASCULAR: Regular rate and rhythm without murmurs, gallops, or rubs. RESPIRATORY: Breath sounds equal bilaterally. No accessory muscle use. GASTROINTESTINAL: Abdomen soft, non-tender, nondistended. MUSCULOSKELETAL: No cyanosis, or edema. SKIN: Warm and dry. NEURO: No focal neurological deficitis. Laboratory Laboratory Tests Test 12/12/17 04:30 12/12/17 06:08 12/12/17 08:38 12/12/17 10:15 Bedside Hemoglobin 13.6 Bedside Hematocrit 40.0 Prothrombin Time 10.1 Prothromb Time International Ratio 1.0 Activated Partial Thromboplast Time 26.1 Fibrinogen 317 Bedside Sodium 142 Bedside Potassium 4.1 Bedside Chloride 110 Bedside Blood Urea Nitrogen 25 Bedside Creatinine 0.9 Bedside Glucose 118 Total Creatine Kinase 82 Troponin I 0.30 0.19 White Blood Count 8.1 Red Blood Count 4.37 Hemoglobin 13.9 Hematocrit 41.5 Mean Corpuscular Volume 95.1 Mean Corpuscular Hemoglobin 31.9 Mean Corpuscular Hemoglobin Concent 33.5 Red Cell Distribution Width 13.2 Platelet Count 212 Mean Platelet Volume 10.2 Neutrophils (%) (Auto) 50.4 Lymphocytes (%) (Auto) 37.2 Monocytes (%) (Auto) 8.5 Eosinophils (%) (Auto) 3.3 Basophils (%) (Auto) 0.6 Neutrophils # (Auto) 4.1 Lymphocytes # (Auto) 3.0 Monocytes # (Auto) 0.7 Eosinophils # (Auto) 0.3 Basophils # (Auto) 0.0 CBC Comment DIFF FINAL Differential Comment Erythrocyte Sedimentation Rate 8 Urine Color LIGHT-YELLOW Urine Turbidity CLEAR Urine pH 6.5 Urine Specific [place] 1.050 Urine Protein NEG Urine Glucose (UA) NEG Urine Ketones NEG Urine Occult Blood NEG Urine Nitrite NEG Urine Bilirubin NEG Urine Urobilinogen LESS THAN 2.0 Urine Leukocyte Esterase NEG Urine RBC LESS THAN 1 Urine WBC LESS THAN 1 Urine Squamous Epithelial Cells <1 Urine Mucus FEW Urine Opiates Screen NEG Urine Barbiturates Screen NEG Urine Amphetamines Screen NEG Urine Benzodiazepines Screen NEG Urine Cocaine Screen NEG Urine Cannabinoids Screen NEG Result Diagram: 12/12/17 0608 Imaging Last Impressions Neck CTA 12/12/17433 Signed Impressions: CONCLUSION: 1. Atherosclerotic plaquing without any significant stenosis. Head CTA 12/12/17433 Signed Impressions: CONCLUSION: 1. Diminished flow identified within the left MCA appears to be related to rolly rly significant atherosclerotic disease without any filling defects or abrupt c ut off. Head CT 12/12/17 0000 Signed Impressions: CONCLUSION: Old infarction on the left and no acute hemorrhage or mass effect. Caprini VTE Risk Assessment Caprini VTE Risk Assessment: Mod/High Risk (score >= 2) Caprini Risk Assessment Model Point Value = 1 Point Value = 2 Point Value = 3 Point Value = 5 Age 41-60 Minor surgery BMI > 25 kg/m2 Swollen legs Varicose veins or History of unexplained or recurrent spontaneous Oral contraceptives or hormone replacement Sepsis (< 1 month) Serious lung disease, including pneumonia (< 1 month) Abnormal pulmonary function Acute myocardial infarction Congestive heart failure (< 1 month) History of inflammatory bowel disease Medical patient at bed rest Age 61-74 Arthroscopic surgery Major open surgery (> 45 min) Laparoscopic surgery (> 45 min) Malignancy Confined to bed (> 72 hours) Immobilizing plaster cast Central venous access Age >= 75 History of VTE Family history of VTE Factor V Leiden Prothrombin [id number] Lupus anticoagulant Anticardiolipin antibodies Elevated serum homocysteine Heparin-induced thrombocytopenia Other congenital or acquired thrombophilia Stroke (< 1 month) Elective arthroplasty Hip, pelvis, or leg fracture Acute spinal cord injury (< 1 month) Prophylaxis Regimen Total Risk Factor Score Risk Level Prophylaxis Regimen 0-1 Low Early ambulation 2 Moderate Order ONE of the following: *Sequential Compression Device (SCD) *Heparin 5000 units SQ BID 3-4 Higher Order ONE of the following medications: *Heparin 5000 units SQ TID *Enoxaparin/Lovenox 40 mg SQ daily (WT < 150 kg, CrCl > 30 mL/min) *Enoxaparin/Lovenox 30 mg SQ daily (WT < 150 kg, CrCl > 10-29 mL/min) *Enoxaparin/Lovenox 30 mg SQ BID (WT < 150 kg, CrCl > 30 mL/min) AND/OR *Sequential Compression Device (SCD) 5 or more Highest Order ONE of the following medications: *Heparin 5000 units SQ TID (Preferred with Epidurals) *Enoxaparin/Lovenox 40 mg SQ daily (WT < 150 kg, CrCl > 30 mL/min) *Enoxaparin/Lovenox 30 mg SQ daily (WT < 150 kg, CrCl > 10-29 mL/min) *Enoxaparin/Lovenox 30 mg SQ BID (WT < 150 kg, CrCl > 30 mL/min) AND *Sequential Compression Device (SCD) Assessment and Plan Problem List: (1) TIA (transient ischemic attack) ICD Code: G45.9 - Transient cerebral ischemic attack, unspecified Status: Acute Assessment and Plan 62-year-old male admitted secondary to right sided weakness and flaccidity Acute Right-sided hemiplegia CVA versus TIA Hemiplegia resolving Continue bed rest Neurology following Continue workup CT shows no acute infarction Patient cannot obtain MRI due to pacemaker Coronary artery disease Old myocardial infarction (x14) Coronary stents AICD Elevated Troponin May be a contributory pathology to CVA/TIA No change to baseline treatments No chest pain Follow troponin (elevation may be chronic) Follow clinically Hyperlipidemia Continue present treatment Follow as an outpatient Hypertension Continue baseline treatment Follow blood pressures Adjust treatments as needed Diabetes mellitus type 2 Follow blood sugars Insulin sliding scale Diabetic diet DVT prophylaxis SCDs given recent CVA Physician Certification 2 Midnight Certification Type: Admission for Inpatient Services Order for Inpatient Services The services are ordered in accordance with Medicare regulations or non- Medicare payer requirements, as applicable. In the case of services not specified as inpatient-only, they are appropriately provided as inpatient services in accordance with the 2-midnight benchmark. Estimated LOS (days): 2 days is the estimated time the patient will need to remain in the hospital, assuming treatment plan goals are met and no additional complications. Post-Hospital Plan: Home Problem Qualifiers (1) TIA (transient ischemic attack): Qualified Codes: G45.9 - Transient cerebral ischemic attack, unspecified Rick Levine MD December 12, 2017 11:40
[2017-12-12] MEDS ORDERED: NITROGLYCERIN 0.4 MG SL 25 TABS/BTL SL PRN (11:45)
[2017-12-12] MEDS ORDERED: MORPHINE SULFATE 4 MG/ML INJ ONE (11:57)
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
[2017-12-12] MEDS: GEMFIBROZIL 600 MG TAB PO SCH (16:07)
[2017-12-12 16:10] LABS: HEMOGLOBIN A1C 6.1 % (4.3-6.0)
[2017-12-12] MEDS: MORPHINE SULFATE 2 MG/ML SYRINGE IV PUSH PRN (16:20)
[2017-12-12 18:34] LABS: FREE T4 0.95 NG/DL (0.76-1.46); TROPONIN I 0.3 NG/ML (0.02-0.05)
[2017-12-12] MEDS ORDERED: GABAPENTIN 300 MG CAP PO SCH (21:00)
[2017-12-12] MEDS ORDERED: ATORVASTATIN 40 MG TAB PO SCH (21:00)
[2017-12-12] MEDS ORDERED: MIRTAZAPINE 15 MG TAB PO SCH (21:00)
[2017-12-12] MEDS ORDERED: PRAVASTATIN SOD 40 MG TAB PO SCH (21:00)
[2017-12-13] VITALS (12 sets, daily range): BP systolic 119–185; BP diastolic 56–115; PULSE 61–160; RESP 20–30; TEMP 98.2–98.6; O2SAT 0–100
[2017-12-13] MEDS: MORPHINE SULFATE 2 MG/ML SYRINGE IV PUSH PRN (01:55)
[2017-12-13] MEDS: HEPARIN-D5W 25,000 U/250 ML 250 ML IV PRN (02:29)
--- NOTE | 2017-12-13 03:53 | RADRPT ---
EXAM DATE: 12/13/2017 3:33 AM EDT AGE/SEX: 62 years / Male INDICATIONS: Post TPA. Neuro status change. CLINICAL DATA: This is the patient's subsequent encounter. Patient reports that signs and symptoms h ave been present for 1 day and indicates a pain score of 0/10. MEDICAL/SURGICAL HISTORY: Cardiovascular disease. Cerebrovascular disease. Chronic obstructive pu lmonary disease. . RADIATION DOSE: 56.34 CTDI (mGy) [place] [facility] [place]12/2017. . TECHNIQUE: CT of the head without contrast. Using automated exposure control and adjustment of the mA and/or kV according to patient size, radiation dose was kept as low as reasonably achievable to ob tain optimal diagnostic quality images. FINDINGS: There is an area of acute infarction involving the left temporal lobe not present previously with cyt otoxic edema. Old encephalomalacia is again seen on the left and not changed. There is no hemorrhage or mass effect. CONCLUSION: 1. Area of acute infarction has developed in the left temporal lobe not identified previously withou t any hemorrhage or mass effect. Electronically signed by: Helio Garcia MD 12/13/2017 3:52 AM EDT
[2017-12-13 04:06] LABS: AUTOMATED NEUTROPHIL # 4.2 TH/MM3 (1.8-7.7); BASOPHIL % 0.5 % (0.0-2.0); EOSINOPHIL # 0.2 TH/MM3 (0-0.4); EOSINOPHIL % 2.9 % (0.0-4.0); HEMATOCRIT 40.9 % (39.0-51.0); HEMOGLOBIN 13.8 GM/DL (13.0-17.0); LYMPH % 36.5 % (9.0-44.0); LYMPHOCYTE # 2.9 TH/MM3 (1.0-4.8); MEAN CELL VOLUME 94.7 FL (80.0-100.0); MEAN CORPUSCULAR HEMOGLOBIN 31.8 PG (27.0-34.0); MEAN CORPUSCULAR HGB CONC 33.6 % (32.0-36.0); MEAN PLATELET VOLUME 9.3 FL (7.0-11.0); MONO % 7.3 % (0.0-8.0); MONOCYTE # 0.6 TH/MM3 (0-0.9); NEUT % 52.8 % (16.0-70.0); PLATELET COUNT 201 TH/MM3 (150-450); RED BLOOD COUNT 4.32 MIL/MM3 (4.50-5.90); RED CELL DISTRIBUTION WIDTH 13.2 % (11.6-17.2); WHITE BLOOD COUNT 7.9 TH/MM3 (4.0-11.0)
--- NOTE | 2017-12-13 04:18 | HHI.PR ---
Addendum to Inpatient Note Additional Information RN called our night team to report that patient has acute neurological change - he is unable to move his right upper and lower extremity. No changes in speech, no facial droops. Patient was admitted on 12/12/2017 due to CVA/TIA. Neurology already evaluated patient and patient is currently on heparin drip. I went to see patient. On my exam, his right side is appreciably weak - right upper ext 3 out of 5 and right lower ext [address] head without contrast shows an acute left sided temporal stroke which was not identified on the admission CT head. Patient is unable to undergo MRI studies due to AICD. Per RN, patient was last normal around 2:30AM. RN will notify Dr. Garrett (orchestra conductor neurologist who also saw patient on 12/12/2017). Coni Garcia DO December 13, 2017 04:18
[2017-12-13] MEDS ORDERED: SODIUM CHLORID 0.9% 500 ML INJ 300 ML IV SCH (04:30)
[2017-12-13 04:41] LABS: ALBUMIN 3.4 GM/DL (3.4-5.0); ALT (GPT) 16 U/L (12-78); AST (GOT) 16 U/L (15-37); BICARBONATE 23.5 MEQ/L (21.0-32.0); BLOOD UREA NITROGEN 15 MG/DL (7-18); CHLORIDE 108 MEQ/L (98-107); CREATININE 0.92 MG/DL (0.60-1.30); GLOMERULAR FILTRATION RATE 83 ML/MIN (>89); GLUCOSE,RANDOM 91 MG/DL (74-106); SODIUM (NA) 142 MEQ/L (136-145)
[2017-12-13 04:43] LABS: ALKALINE PHOSPHATASE 77 U/L (45-117); TOTAL BILIRUBIN ADULT 0.5 MG/DL (0.2-1.0); TOTAL PROTEIN 6.7 GM/DL (6.4-8.2)
[2017-12-13] MEDS ORDERED: ASPIRIN 325 MG TAB PO SCH (04:45)
[2017-12-13] MEDS ORDERED: SODIUM CHLORID 0.9% 500 ML INJ 500 ML IV SCH (05:00)
[2017-12-13] MEDS ORDERED: IOHEXOL 350 MG/ML 10 ML VIAL (for RAD DIAG) IVCONTRAST ONE (05:35)
--- NOTE | 2017-12-13 05:42 | RADRPT ---
EXAM DATE: 12/13/2017 5:33 AM EDT AGE/SEX: 62 years / Male INDICATIONS: Evaluate stroke. CLINICAL DATA: This is the patient's subsequent encounter. Patient reports that signs and symptoms h ave been present for 1 day and indicates a pain score of 0/10. MEDICAL/SURGICAL HISTORY: Cerebrovascular disease. Cardiovascular disease. Hypertension. COPD D Iabetes CABG. Pacemaker. RADIATION DOSE: 58.09 CTDI (mGy) COMPARISON: [facility] – [place], CTA BRAIN W 3D RECON, 12/12/2017. . TECHNIQUE: Volumetric scanning was performed using a multi-row detector CT scanner during bolus infu marlene of 80 ml Omnipaque 350 (iohexol) nonionic water-soluble contrast as a single exam dose. The d gosia was post processed with a variety of visualization algorithms including full volume maximum inten sity projection, multi-planar sliding thin slab reformation, curved planar reformation, and surface r endering techniques. Using automated exposure control and adjustment of the mA and/or kV according t o patient size, radiation dose was kept as low as reasonably achievable to obtain optimal diagnostic quality images. FINDINGS: There is improvement in blood flow to the left MCA since the prior study from one day ago. The prior exam did not demonstrate a clear abrupt cut off or filling defect, however on today's examination the re appears to be a filling defect involving the left MCA. CONCLUSION: 1. Improvement in blood flow to the left MCA since the prior exam and there appears to be a small fi lling defect probably a blood clot involving the distal branch of the M2 on the left side which was n ot clearly demonstrated on the prior exam. Electronically signed by: Helio Garcia MD 12/13/2017 5:41 AM EDT
[2017-12-13] MEDS: GEMFIBROZIL 600 MG TAB PO SCH (06:13)
[2017-12-13] MEDS ORDERED: RESP: ALBUTEROL 2.5 MG/IPRATROPIUM 0.5 MG NEB (PRN) ONE (07:31)
[2017-12-13] MEDS ORDERED: ETOMIDATE 40 MG/20 ML VIAL ONE (07:46)
[2017-12-13] MEDS ORDERED: ROCURONIUM INJ 50 MG/5 ML VIAL ONE (07:47)
--- NOTE | 2017-12-13 07:49 | PD.CARD.PN ---
Objective Medications Current Medications Medications (Trade) Dose Ordered Sig/Ra Route Start Time Stop Time Status Last Admin Heparin Sodium/ Dextrose 250 ml @ 11 mls/hr TITRATE PRN IV 12/12/17 06:00 12/13/17 02:29 (NS Flush) 2 ml BID IV FLUSH 12/12/17 09:00 (NS Flush) 2 ml UNSCH PRN IV FLUSH 12/12/17 06:15 (Vasotec Inj) 1.25 mg Q4H PRN IV PUSH 12/12/17 06:15 (Pravachol) 40 mg HS PO 12/12/17 21:00 12/12/17 21:38 (Tylenol) 650 mg Q6H PRN PO 12/12/17 06:15 12/12/17 08:59 (Jennifer-Colace) 1 tab BID PO 12/12/17 09:00 12/12/17 21:38 (Milk Of Magnesia Liq) 30 ml Q12H PRN PO 12/12/17 06:15 (Senokot) 17.2 mg Q12H PRN PO 12/12/17 06:15 (Dulcolax Supp) 10 mg DAILY PRN RECTAL 12/12/17 06:15 (Lactulose Liq) 30 ml DAILY PRN PO 12/12/17 06:15 Sodium Chloride 1,000 ml @ 125 mls/hr Q8H IV 12/12/17 10:00 (Morphine Inj) 2 mg Q4H PRN IV PUSH 12/12/17 11:30 12/13/17 01:55 (D50w (Vial) Inj) 50 ml UNSCH PRN IV PUSH 12/12/17 11:45 (Glucagon Inj) 1 mg UNSCH PRN OTHER 12/12/17 11:45 (NovoLOG SUPPLEMENTAL SCALE) 1 ACHS SLIDING SCALE SQ 12/12/17 12:00 (Aspirin Chew) 81 mg DAILY CHEW 12/13/17 09:00 (Lipitor) 40 mg HS PO 12/12/17 21:00 12/12/17 21:37 (Vitamin D3) 1,000 units DAILY PO 12/13/17 09:00 (PROzac) 20 mg DAILY PO 12/13/17 09:00 (Neurontin) 300 mg BID PO 12/12/17 21:00 12/12/17 21:38 (Lopid) 600 mg BIDAC PO 12/12/17 16:00 12/13/17 06:13 (Lactinex) 1 tab DAILY PO 12/13/17 09:00 (Remeron) 7.5 mg HS PO 12/12/17 21:00 12/12/17 21:39 (Nitrostat Sl) 0.4 mg Q5M PRN SL 12/12/17 11:45 Vital Signs / I&O Vital Signs Date Time Temp Pulse Resp B/P (MAP) Pulse Ox O2 Delivery O2 Flow Rate FiO2 12/13/17 04:00 98.6 61 20 119/56 (77) 93 12/13/17 00:00 98.2 61 20 131/65 (87) 95 12/12/17 20:00 97.7 54 20 121/58 (79) 96 12/12/17 16:57 53 12/12/17 16:00 98.1 55 18 115/68 (84) 95 12/12/17 12:28 12/12/17 12:00 98.2 58 17 108/53 (71) 97 12/12/17 11:00 71 133/64 (87) 12/12/17 09:09 75 19 153/71 (98) 96 Room Air 12/12/17 07:48 96 21 I/O 12/12/17 12/12/17 12/12/17 12/13/17 12/13/17 12/13/17 07:00 15:00 23:00 07:00 15:00 23:00 Intake Total 0 ml Output Total 500 ml Balance -500 ml Intake Oral 0 ml Output Urine Total 500 ml Physical Exam GENERAL: Well developed, well nourished. resp distress, HEENT: Jugular venous pressure is normal. CHEST: Lungs decreased bilaterally. Unlabored respiratory effort. CARDIAC: tachy rate and rhythm without S3, S4, or murmur. ABDOMEN: Soft, nontender, no hepatosplenomegaly. Bowel sounds present. EXTREMITIES: + cyanosis,. Laboratory Laboratory Tests Test 12/12/17 08:38 12/12/17 10:15 12/12/17 11:30 12/12/17 15:07 Urine Color LIGHT-YELLOW Urine Turbidity CLEAR Urine pH 6.5 Urine Specific [place] 1.050 Urine Protein NEG mg/dL Urine Glucose (UA) NEG mg/dL Urine Ketones NEG mg/dL Urine Occult Blood NEG Urine Nitrite NEG Urine Bilirubin NEG Urine Urobilinogen LESS THAN 2.0 MG/DL Urine Leukocyte Esterase NEG Urine RBC LESS THAN 1 /hpf Urine WBC LESS THAN 1 /hpf Urine Squamous Epithelial Cells <1 /hpf Urine Mucus FEW /lpf Urine Opiates Screen NEG Urine Barbiturates Screen NEG Urine Amphetamines Screen NEG Urine Benzodiazepines Screen NEG Urine Cocaine Screen NEG Urine Cannabinoids Screen NEG Hemoglobin A1c 6.1 % Troponin I 0.19 NG/ML Prothrombin Time 10.0 SEC Prothromb Time International Ratio 1.0 RATIO Activated Partial Thromboplast Time 25.5 SEC Test 12/12/17 16:44 12/12/17 21:46 12/13/17 03:45 Aspartate Amino Transf (AST/SGOT) 15 U/L 16 U/L Alanine Aminotransferase (ALT/SGPT) 16 U/L 16 U/L Troponin I 0.30 NG/ML Vitamin B12 Level 509 PG/ML Free Thyroxine 0.95 NG/DL Thyroid Stimulating Hormone 3rd Gen 1.580 uIU/ML Activated Partial Thromboplast Time 40.8 SEC 40.0 SEC White Blood Count 7.9 TH/MM3 Red Blood Count 4.32 MIL/MM3 Hemoglobin 13.8 GM/DL Hematocrit 40.9 % Mean Corpuscular Volume 94.7 FL Mean Corpuscular Hemoglobin 31.8 PG Mean Corpuscular Hemoglobin Concent 33.6 % Red Cell Distribution Width 13.2 % Platelet Count 201 TH/MM3 Mean Platelet Volume 9.3 FL Neutrophils (%) (Auto) 52.8 % Lymphocytes (%) (Auto) 36.5 % Monocytes (%) (Auto) 7.3 % Eosinophils (%) (Auto) 2.9 % Basophils (%) (Auto) 0.5 % Neutrophils # (Auto) 4.2 TH/MM3 Lymphocytes # (Auto) 2.9 TH/MM3 Monocytes # (Auto) 0.6 TH/MM3 Eosinophils # (Auto) 0.2 TH/MM3 Basophils # (Auto) 0.0 TH/MM3 CBC Comment DIFF FINAL Differential Comment Blood Urea Nitrogen 15 MG/DL Creatinine 0.92 MG/DL Random Glucose 91 MG/DL Total Protein 6.7 GM/DL Albumin 3.4 GM/DL Calcium Level 9.0 MG/DL Alkaline Phosphatase 77 U/L Total Bilirubin 0.5 MG/DL Sodium Level 142 MEQ/L Potassium Level 4.0 MEQ/L Chloride Level 108 MEQ/L Carbon Dioxide Level 23.5 MEQ/L Anion Gap 11 MEQ/L Estimat Glomerular Filtration Rate 83 ML/MIN Imaging Last 24 hours Impressions Head CTA 12/13/17 0000 Signed Impressions: CONCLUSION: 1. Improvement in blood flow to the left MCA since the prior exam and there ap pears to be a small filling defect probably a blood clot involving the distal b ranch of the M2 on the left side which was not clearly demonstrated on the prio r exam. Head CT 12/13/17 0000 Signed Impressions: CONCLUSION: 1. Area of acute infarction has developed in the left temporal lobe not identi fied previously without any hemorrhage or mass effect. Assessment and Plan Assessment and Plan s/p CVA- neuro tachy- appears AF, on heparin, amio bolus CHF- EF 30% in 2014 -fluid bolus Liz Ruff MD December 13, 2017 07:49
--- NOTE | 2017-12-13 08:02 | HHI.PR ---
Subjective Remarks st he had at about 3 am recurrent rhp we gave him fluid bolus and inc ivf rate ct showed left mca new cva on top of old r mca cva his cta showed better flow in the left distal mca he had marked sob this am now intubated Objective Vital Signs Date Time Temp Pulse Resp B/P (MAP) Pulse Ox O2 Delivery O2 Flow Rate FiO2 12/13/17 04:00 98.6 61 20 119/56 (77) 93 12/13/17 00:00 98.2 61 20 131/65 (87) 95 12/12/17 20:00 97.7 54 20 121/58 (79) 96 12/12/17 16:57 53 12/12/17 16:00 98.1 55 18 115/68 (84) 95 12/12/17 12:28 12/12/17 12:00 98.2 58 17 108/53 (71) 97 12/12/17 11:00 71 133/64 (87) 12/12/17 09:09 75 19 153/71 (98) 96 Room Air I/O 12/12/17 12/12/17 12/12/17 12/13/17 12/13/17 12/13/17 07:00 15:00 23:00 07:00 15:00 23:00 Intake Total 0 ml Output Total 500 ml Balance -500 ml Intake Oral 0 ml Output Urine Total 500 ml Result Diagram: 12/13/17 0345 12/13/17 0345 Objective Remarks 0/5 rue and rle Assessment and Plan Assessment and Plan imp left mca cva worsening on iv hep and sp asa eventually will change to coumadin prob chf here fu echo result recheck trop senior managing director on case cta shows better left mca flowthan initially Jozef Garrett MD December 13, 2017 08:02
--- NOTE | 2017-12-13 08:22 | RADRPT ---
EXAM DATE: 12/13/2017 8:12 AM EDT AGE/SEX: 62 years / Male INDICATIONS: Helicat. Post intubation. CLINICAL DATA: This is the patient's subsequent encounter. Patient reports that signs and symptoms h ave been present for 2 days and indicates a pain score of Nonresponsive. MEDICAL/SURGICAL HISTORY: Hypercholesterolemia. Chronic obstructive pulmonary disease. Conges tive heart failure. CVA. Myocardial infarction.Diabetic. Smoker/ Tonsillectomy. CABG. Pacemaker. COMPARISON: 08/29/2017. FINDINGS: A single AP view of the chest demonstrates cardiomegaly with left-sided pacemaker/defibrillator. Endo tracheal tube with tip approximately 2 cm above the jennifer. Status post CABG. Lungs appear clear. Bryan ogastric tube below the inferior margin of the image. The cardiomediastinal contours are unremarkable . Osseous structures are intact. CONCLUSION: 1. Endotracheal tube 2 cm above the jennifer. 2. Cardiomegaly and left-sided pacemaker/defibrillator. Electronically signed by: Aaron Martin MD 12/13/2017 8:21 AM EDT
[2017-12-13] MEDS ORDERED: ASPIRIN 81 MG CHEW TAB CHEW SCH (09:00)
[2017-12-13] MEDS ORDERED: FLUoxetine HCL 20 MG CAP PO SCH (09:00)
[2017-12-13] MEDS ORDERED: CHOLECALCIFEROL (VIT D3) 1000 UNIT TAB PO SCH ×2 (09:00)
[2017-12-13] MEDS ORDERED: LACTOBACILLUS ACIDOPHILUS TAB PO SCH (09:00)
--- NOTE | 2017-12-13 09:08 | HHI.PR ---
Subjective Remarks Overnight patient had an onset of recurrence of right sided weakness. Imaging has shown new evidence of a new CVA, compared to imaging obtained in the ER. He also had an onset of shortness of breath, which acutely worsened this morning. He has a history of 14 myocardial infarctions, so this is the most suspect etiology at the moment. ABG was obtained this morning and showed hypoxia. A chest x-ray did not suggest a visualized pulmonary etiology. Patient was intubated and subsequently had PEA and needed resuscitation. He is transferred to the ICU under tacker elastic band care at this time. Objective Vital Signs Date Time Temp Pulse Resp B/P (MAP) Pulse Ox O2 Delivery O2 Flow Rate FiO2 12/13/17 08:39 77 100 12/13/17 04:00 98.6 61 20 119/56 (77) 93 12/13/17 00:00 98.2 61 20 131/65 (87) 95 12/12/17 20:00 97.7 54 20 121/58 (79) 96 12/12/17 16:57 53 12/12/17 16:00 98.1 55 18 115/68 (84) 95 12/12/17 12:28 12/12/17 12:00 98.2 58 17 108/53 (71) 97 12/12/17 11:00 71 133/64 (87) 12/12/17 09:09 75 19 153/71 (98) 96 Room Air I/O 12/12/17 12/12/17 12/12/17 12/13/17 12/13/17 12/13/17 07:00 15:00 23:00 07:00 15:00 23:00 Intake Total 0 ml Output Total 500 ml Balance -500 ml Intake Oral 0 ml Output Urine Total 500 ml Result Diagram: 12/13/17 0345 12/13/17 0345 Imaging Last Impressions Head CTA 12/13/17 0000 Signed Impressions: CONCLUSION: 1. Improvement in blood flow to the left MCA since the prior exam and there ap pears to be a small filling defect probably a blood clot involving the distal b ranch of the M2 on the left side which was not clearly demonstrated on the prio r exam. Head CT 12/13/17 0000 Signed Impressions: CONCLUSION: 1. Area of acute infarction has developed in the left temporal lobe not identi fied previously without any hemorrhage or mass effect. Chest X-Ray 12/13/17 0000 Signed Impressions: CONCLUSION: 1. Endotracheal tube 2 cm above the jennifer. 2. Cardiomegaly and left-sided pacemaker/defibrillator. Neck CTA 12/12/17 0434 Signed Impressions: CONCLUSION: 1. Atherosclerotic plaquing without any significant stenosis. Objective Remarks GENERAL: NAD, A&Ox0, intubated, sedated. HEAD: Normocephalic. NECK: Supple, trachea midline. No lymphadenopathy. CARDIOVASCULAR: Regular rate and rhythm without murmurs, gallops, or rubs. RESPIRATORY: Breath sounds equal bilaterally. No accessory muscle use. GASTROINTESTINAL: Abdomen soft, non-tender, nondistended. MUSCULOSKELETAL: No cyanosis, or edema. SKIN: Warm and dry. A/P Problem List: (1) CVA (cerebral vascular accident) ICD Code: I63.9 - Cerebral infarction, unspecified (2) Respiratory failure ICD Code: J96.90 - Respiratory failure, unspecified, unspecified whether with hypoxia or hypercapnia Assessment and Plan 62 year old male admitted with CVA, with a long standing history of CAD and 14 MIs in his past. Acute Respiratory Failure Hypoxia Patient intubated and transfered to ICU Logistics Engineer consulted Plan to follow cardiac enzymes as this may be related to a myocardial infarction Cardiology following Right-sided hemiplegia CVA Continue bed rest Neurology following Repeat CT shows evidence of an acute infarction Patient cannot obtain MRI due to pacemaker Coronary artery disease Old myocardial infarction (x14) Coronary stents AICD Elevated Troponin May be a contributory pathology to CVA No change to baseline treatments No chest pain Follow troponin (elevation may be chronic) Follow clinically Hyperlipidemia Continue present treatment Follow as an outpatient Hypertension Continue baseline treatment Follow blood pressures Adjust treatments as needed Diabetes mellitus type 2 Follow blood sugars Insulin sliding scale Diabetic diet DVT prophylaxis SCDs given recent CVA Rick Levine MD December 13, 2017 09:08
[2017-12-13 09:49] LABS: AUTOMATED NEUTROPHIL # 5.5 TH/MM3 (1.8-7.7); BASOPHIL % 0.4 % (0.0-2.0); EOSINOPHIL # 0.2 TH/MM3 (0-0.4); HEMATOCRIT 39.2 % (39.0-51.0); HEMOGLOBIN 12.8 GM/DL (13.0-17.0); LYMPH % 36.7 % (9.0-44.0); LYMPHOCYTE # 3.5 TH/MM3 (1.0-4.8); MEAN CELL VOLUME 96.7 FL (80.0-100.0); MEAN CORPUSCULAR HEMOGLOBIN 31.7 PG (27.0-34.0); MEAN CORPUSCULAR HGB CONC 32.8 % (32.0-36.0); MEAN PLATELET VOLUME 9.5 FL (7.0-11.0); MONO % 2.8 % (0.0-8.0); MONOCYTE # 0.3 TH/MM3 (0-0.9); NEUT % 58.1 % (16.0-70.0); PLATELET COUNT 222 TH/MM3 (150-450); RED BLOOD COUNT 4.05 MIL/MM3 (4.50-5.90); RED CELL DISTRIBUTION WIDTH 13.8 % (11.6-17.2); WHITE BLOOD COUNT 9.4 TH/MM3 (4.0-11.0)
[2017-12-13 10:00] LABS: PROTHROMBIN TIME - PATIENT 10.6 SEC (9.8-11.6)
[2017-12-13] MEDS: NOREPINEPHRINE-DEXTROSE DRIP 250 ML IV PRN ×2 (10:00→13:35)
[2017-12-13 10:31] LABS: ALBUMIN 2.6 GM/DL (3.4-5.0); ALKALINE PHOSPHATASE 72 U/L (45-117); ALT (GPT) 45 U/L (12-78); AST (GOT) 71 U/L (15-37); BICARBONATE 24.2 MEQ/L (21.0-32.0); BLOOD UREA NITROGEN 15 MG/DL (7-18); CALCIUM 8.7 MG/DL (8.5-10.1); CHLORIDE 103 MEQ/L (98-107); CREATININE 1.58 MG/DL (0.60-1.30); GLOMERULAR FILTRATION RATE 44 ML/MIN (>89); GLUCOSE,RANDOM 260 MG/DL (74-106); MAGNESIUM 2.8 MG/DL (1.5-2.5); PHOSPHORUS 7.2 MG/DL (2.5-4.9); SODIUM (NA) 142 MEQ/L (136-145); TOTAL BILIRUBIN ADULT 0.4 MG/DL (0.2-1.0); TOTAL PROTEIN 5.5 GM/DL (6.4-8.2); TROPONIN I 0.36 NG/ML (0.02-0.05)
--- NOTE | 2017-12-13 11:03 | PD.CONS ---
[facility] Service Critical Care Medicine Consult Requested By Dr. Richey Reason for Consult Acute resp failure Primary Care Physician Angel Liu MD History of Present Illness History of Present Illness 62-year-old male admitted on 12/12 with right-sided weakness and was evaluated by Dr. Garrett from neurology as well as Dr. Ruff from cardiology. It was felt he had a right-sided stroke. Patient is left-handed. He has an extensive cardiac history with ischemic cardiomyopathy LVEF 30%, ICD placement, multiple MIs status post previous CABG and stenting. Patient was placed on heparin for anticoagulation in view of suspected embolic stroke. This morning patient developed worsening respiratory distress with heart rate up to the 140s. He was loaded with amiodarone seen by Dr. Ruff and Dr. Garrett. It was felt patient needed intubation in view of worsening respiratory status. I arrived at bedside immediately on being notified by rapid response team. Patient was emergently intubated and placed on mechanical ventilation shortly following which he went into a PEA cardiac arrest. CPR/ACLS protocol initiated. Patient subsequently had return of spontaneous circulation and [place] [facility] [place] for hypotension. [place] [facility] [place] had another run of PEA cardiac arrest for which CPR/ACLS protocol initiated and patient had return of spontaneous circulation. I emergently placed a left femoral central line and a left axillary A-line. I spoke with Dr. Garrett following cardiac arrest and Dr. Ruff was informed regarding events as well. Bedside echo performed by me revealed extremely dilated left ventricle with poor LV contractility. RV appeared to be valentin well. Stat formal bedside echo was ordered. I spoke with patient' s multiple times on the floor as well as following arrival to the ICU updating her of his status Review of Systems Unable to be obtained as patient is orally intubated on mechanical ventilation Past Family Social History Past Medical History Coronary artery disease Old myocardial infarction (x14) Coronary stents Hyperlipidemia Hypertension AICD present Diabetes mellitus type 2 Past Surgical History CABGx3 AICD Tonsillectomy Reported Medications Reported Meds & Active Scripts Active Reported Vitamin D-1000 (Cholecalciferol) 1,000 Unit Tab 1,000 Units PO DAILY Probiotic (Lactobacillus Acidophilus) 10 Billion Cell Cap 3 Cap PO DAILY Mirtazapine 7.5 Mg Tab 7.5 Mg PO HS Vitamin D-1000 (Cholecalciferol) 1,000 Unit Tab 1,000 Units PO DAILY Fluoxetine (Fluoxetine HCl) 20 Mg Capsule 20 Mg PO DAILY Lisinopril 5 Mg Tab 5 Mg PO DAILY Aspirin Children's (Aspirin) 81 Mg Chew 81 Mg CHEW DAILY Nitrostat SL (Nitroglycerin) 0.4 Mg Subl 0.4 Mg SL DIRECTED PRN 1 tablet under the tongue as needed for chest pain. Repeat every 5 minutes for a total of 3 DOSES or call 911 if NO relief. Gemfibrozil 600 Mg Tab 600 Mg PO BIDAC Take 30 minutes prior to breakfast and dinner. Gabapentin 300 Mg Cap 300 Mg PO BID Carvedilol 25 Mg Tab 25 Mg PO BID Atorvastatin (Atorvastatin Calcium) 40 Mg Tab 40 Mg PO HS Allergies: Coded Allergies: No Known Allergies (Unverified Adverse Reaction, Unknown, 12/12/17) Current Medications Medications (Trade) Dose Ordered Sig/Ra Route Start Time Stop Time Status Last Admin Heparin Sodium/ Dextrose 250 ml @ 11 mls/hr TITRATE PRN IV 12/12/17 06:00 12/13/17 02:29 (NS Flush) 2 ml BID IV FLUSH 12/12/17 09:00 (NS Flush) 2 ml UNSCH PRN IV FLUSH 12/12/17 06:15 (Vasotec Inj) 1.25 mg Q4H PRN IV PUSH 12/12/17 06:15 (Pravachol) 40 mg HS PO 12/12/17 21:00 12/12/17 21:38 (Tylenol) 650 mg Q6H PRN PO 12/12/17 06:15 12/12/17 08:59 (Jennifer-Colace) 1 tab BID PO 12/12/17 09:00 12/12/17 21:38 (Milk Of Magnesia Liq) 30 ml Q12H PRN PO 12/12/17 06:15 (Senokot) 17.2 mg Q12H PRN PO 12/12/17 06:15 (Dulcolax Supp) 10 mg DAILY PRN RECTAL 12/12/17 06:15 (Lactulose Liq) 30 ml DAILY PRN PO 12/12/17 06:15 Sodium Chloride 1,000 ml @ 125 mls/hr Q8H IV 12/12/17 10:00 (D50w (Vial) Inj) 50 ml UNSCH PRN IV PUSH 12/12/17 11:45 (Glucagon Inj) 1 mg UNSCH PRN OTHER 12/12/17 11:45 (NovoLOG SUPPLEMENTAL SCALE) 1 ACHS SLIDING SCALE SQ 12/12/17 12:00 (Aspirin Chew) 81 mg DAILY CHEW 12/13/17 09:00 (Lipitor) 40 mg HS PO 12/12/17 21:00 12/12/17 21:37 (Vitamin D3) 1,000 units DAILY PO 12/13/17 09:00 (PROzac) 20 mg DAILY PO 12/13/17 09:00 (Neurontin) 300 mg BID PO 12/12/17 21:00 12/12/17 21:38 (Lopid) 600 mg BIDAC PO 12/12/17 16:00 12/13/17 06:13 (Lactinex) 1 tab DAILY PO 12/13/17 09:00 (Remeron) 7.5 mg HS PO 12/12/17 21:00 12/12/17 21:39 (Nitrostat Sl) 0.4 mg Q5M PRN SL 12/12/17 11:45 Physical Exam Vital Signs Vital Signs Date Time Temp Pulse Resp B/P (MAP) Pulse Ox O2 Delivery O2 Flow Rate FiO2 12/13/17 09:27 97 100 12/13/17 08:39 77 100 12/13/17 04:00 98.6 61 20 119/56 (77) 93 12/13/17 00:00 98.2 61 20 131/65 (87) 95 12/12/17 20:00 97.7 54 20 121/58 (79) 96 12/12/17 16:57 53 12/12/17 16:00 98.1 55 18 115/68 (84) 95 12/12/17 12:28 12/12/17 12:00 98.2 58 17 108/53 (71) 97 12/12/17 11:00 71 133/64 (87) Physical Exam HEENT/ Neuro: Sedated, orally intubated, Pallor present, no icterus, tongue/ mucosa moist. (Received neuromuscular blockade for intubation). Pupils 3mm bilaterally sluggish Neck: No JVD Chest/Pulm: on mech vent, good air entry bilaterally, no wheezing or crackles CVS: S1-S2 regular, no murmur GI/abdomen: soft, nontender, bowel sounds sluggish Extremities: warm bilaterally, trace edema Laboratory Laboratory Tests Test 12/12/17 11:30 12/12/17 15:07 12/12/17 16:44 12/12/17 21:46 Rapid Plasma Reagin NON-REACTIVE Prothrombin Time 10.0 Prothromb Time International Ratio 1.0 Activated Partial Thromboplast Time 25.5 40.8 Aspartate Amino Transf (AST/SGOT) 15 Alanine Aminotransferase (ALT/SGPT) 16 Troponin I 0.30 Vitamin B12 Level 509 Free Thyroxine 0.95 Thyroid Stimulating Hormone 3rd Gen 1.580 Test 12/13/17 03:45 12/13/17 07:30 12/13/17 08:50 12/13/17 09:15 White Blood Count 7.9 9.4 Red Blood Count 4.32 4.05 Hemoglobin 13.8 12.8 Hematocrit 40.9 39.2 Mean Corpuscular Volume 94.7 96.7 Mean Corpuscular Hemoglobin 31.8 31.7 Mean Corpuscular Hemoglobin Concent 33.6 32.8 Red Cell Distribution Width 13.2 13.8 Platelet Count 201 222 Mean Platelet Volume 9.3 9.5 Neutrophils (%) (Auto) 52.8 58.1 Lymphocytes (%) (Auto) 36.5 36.7 Monocytes (%) (Auto) 7.3 2.8 Eosinophils (%) (Auto) 2.9 2.0 Basophils (%) (Auto) 0.5 0.4 Neutrophils # (Auto) 4.2 5.5 Lymphocytes # (Auto) 2.9 3.5 Monocytes # (Auto) 0.6 0.3 Eosinophils # (Auto) 0.2 0.2 Basophils # (Auto) 0.0 0.0 CBC Comment DIFF FINAL DIFF FINAL Differential Comment Activated Partial Thromboplast Time 40.0 24.7 Blood Urea Nitrogen 15 Creatinine 0.92 Random Glucose 91 Total Protein 6.7 Albumin 3.4 Calcium Level 9.0 Alkaline Phosphatase 77 Aspartate Amino Transf (AST/SGOT) 16 Alanine Aminotransferase (ALT/SGPT) 16 Total Bilirubin 0.5 Sodium Level 142 Potassium Level 4.0 Chloride Level 108 Carbon Dioxide Level 23.5 Anion Gap 11 Estimat Glomerular Filtration Rate 83 Blood Gas Puncture Site LT RADIAL LT RADIAL Blood Gas Patient Temperature 98.6 98.6 Blood Gas HCO3 18 32 Blood Gas Base Excess -11.1 5.7 Blood Gas Oxygen Saturation 90 94 Arterial Blood pH 7.05 7.31 Arterial Blood Partial Pressure CO2 68 64 Arterial Blood Partial Pressure O2 92 92 Arterial Blood Oxygen Content 19.3 16.5 Arterial Blood Carboxyhemoglobin 0.3 0.5 Arterial Blood Methemoglobin 1.1 1.6 Blood Gas Hemoglobin 15.2 12.4 Oxygen Delivery Device NRB VENTILATOR Blood Gas Liter Flow 15 Blood Gas Inspired Oxygen 100 100 Blood Gas Ventilator Setting PRVC24/550/1.2/+15 Prothrombin Time 10.6 Prothromb Time International Ratio 1.0 Lactic Acid Level 7.8 Result Diagram: 12/13/17 0915 12/13/17 0345 Course 12/13: CXR portable (personally reviewed) : ET tube above jennifer, OG tube in place, sternotomy wires noted, well-expanded lung jara with no obvious infiltrates or effusions. Minimal pulmonary vascular congestion Last Impressions Head CTA 12/13/17 0000 Signed Impressions: CONCLUSION: 1. Improvement in blood flow to the left MCA since the prior exam and there ap pears to be a small filling defect probably a blood clot involving the distal b ranch of the M2 on the left side which was not clearly demonstrated on the prio r exam. Head CT 12/13/17 0000 Signed Impressions: CONCLUSION: 1. Area of acute infarction has developed in the left temporal lobe not identi fied previously without any hemorrhage or mass effect. Chest X-Ray 12/13/17 0000 Signed Impressions: CONCLUSION: 1. Endotracheal tube 2 cm above the jennifer. 2. Cardiomegaly and left-sided pacemaker/defibrillator. Neck CTA 12/12/17 0434 Signed Impressions: CONCLUSION: 1. Atherosclerotic plaquing without any significant stenosis. Assessment and Plan Assessment and Plan 62-year-old male with: Ischemic stroke Acute respiratory failure on mechanical ventilation Cardiac arrest status post CPR (PEA followed by Vta) Ischemic cardiomyopathy Cardiogenic shock Lactic acidosis Diabetes mellitus PVD Hyperlipidemia Plan: Neuro: Receive sedation for intubation. Follow neuro status. Currently off sedatives. On heparin for anticoagulation which will be resumed. 2 unstable to obtain head CT currently. Cardiovascular: Status post CPR/ACLS protocol for PE and cardiac arrest. Patient had one run of V. tach for which he underwent DC shock with 200 J and converted to sinus rhythm. On Levophed for pressor support. Check serial cardiac enzymes. Stat 2D echo which per my read showed severe LV dysfunction, RV not dilated. Being followed by Dr. Ruff from cardiology who was updated regarding events and did not feel patient would benefit from any invasive cardiac intervention. Hold all antihypertensives. Continue aspirin. Normal saline at 100 cc an hour. Pulmonary: Continue mechanical ventilation, vent bundle, bronchodilators as needed. Patient being hyperventilated due to lactic acidosis as well as respiratory acidosis. GI/liver: N.p.o. for now. OG tube placed to low intermittent wall suction. Renal/: Strict intake output, monitor and replete electrolytes, follow BUN/ creatinine. ID: No indication for antibiotics at this time Endocrine: SSI for glycemic control Heme: Follow CBC and coags. On heparin for anticoagulation for suspected embolic stroke. Prophylaxis: Pepcid/SCDs. On full anticoagulation with heparin. Access: Left femoral central line placed 12/13, left axillary A-line placed 12/13 After extensive discussion with patient's family has elected to make him DNR status. Condition critical. Patient at high risk for going into recurrent cardiac arrest. Discussed extensively with patient's and family and they have decided to make him DNR status. Discussed with Dr. Garrett and Dr. Ruff earlier. Discussed with SECURITY INCIDENT RESPONSE ENGINEER. Time spent on critical care excluding procedures: 90 minutes. Eric Celaya MD December 13, 2017 11:03
--- NOTE | 2017-12-13 11:11 | ECHRPT ---
Indication: VEGETATIONS CONCLUSIONS The left ventricular systolic function is severely reduced with an estimated ejection fraction less than 20%. Overall hypokinesis, but appears to have akinesis of the anterior, inferior and apical olsen. Appears to have artifact noted at the apex, most likely not thrombus but cannot rule out. Doppler parameters are consistent with impaired left ventricular relaxtion (grade 1 diastolic dysfun ction). Trace mitral valve regurgitation. BP: / HR: Rhythm: Sinus Technical Quality: FINDINGS LEFT VENTRICLE Normal left ventricular size. Wall thickness is normal. The left ventricular systolic function is severely reduced with an estimated ejection fraction less than 20%. Overall hypokinesis, but appears to have akinesis of the anterior, inferior and apical olsen. Appears to have artifact noted at the apex, most likely not thrombus but cannot rule out Doppler parameters are consistent with impaired left ventricular relaxtion (grade 1 diastolic dysfun ction). RIGHT VENTRICLE Grossly normal in size LEFT ATRIUM The left atrial size is normal. RIGHT ATRIUM The right atrial size is normal. ATRIAL SEPTUM Normal atrial septal thickness. AORTA The aortic root and proximal ascending aorta are not well visualized. MITRAL VALVE Structurally normal mitral valve. Mild mitral annular calcification. Trace mitral valve regurgitation. No mitral valve stenosis. AORTIC VALVE Aortic valve sclerosis is present. No aortic valve regurgitation. No aortic valve stenosis. TRICUSPID VALVE Grossly normal No tricuspid regurgitation. No tricuspid valve stenosis. PULMONARY VALVE The pulmonary valve is not well visualized. PERICARDIUM There is no pericardial effusion. Gerard Holliday DO (Electronically Signed) Final Date:13 Dec 2017 11:11
--- NOTE | 2017-12-13 11:22 | PD.PROCEDR ---
Procedure Note Procedure Procedure: Endotracheal intubation Preop diagnosis: Acute respiratory failure Postop diagnosis: Same Indication: Impending respiratory arrest, hypoxic respiratory failure Sedation used: Etomidate 20 mg, fentanyl mcg, rocuronium 50 mg IV Procedure: Patient was preoxygenated with 100% oxygen via [] Ambu bag with bag mask ventilation, following induction of sedation and neuromuscular blockade, direct laryngoscopy was performed using a Mac 4 blade with good visualization of vocal cords. An 8 Mongolian ET tube was passed through the vocal cords under direct visualization up to the 24 centimeter abraham and after inflating cuff of ET tube, correct placement was confirmed using bagging with good color change on CO2 detector, 5 point auscultation and chest rise with ventilation. Patient tolerated procedure well postprocedure chest x-ray was ordered and reviewed with good placement of ET tube above jennifer. Eric Celaya MD December 13, 2017 11:22
[2017-12-13] MEDS ORDERED: PROPOFOL 1000 MG/100 ML INJ 100 ML IV PRN (11:30)
[2017-12-13] MEDS ORDERED: TERBUTALINE INJ 1 MG/ML AMP SQ PRN (11:30)
[2017-12-13 11:34] LABS: CHOLESTEROL/ HDL RATIO 3.88 RATIO
[2017-12-13 11:45] LABS: BACTERIA, URINE RARE /hpf; BILIRUBIN, URINE NEG (NEG); BLOOD, URINE MOD (NEG); GLUCOSE,URINE 70 mg/dL (NEG); HYALINE CAST, URINE 2 /lpf (RARE); KETONE, URINE NEG (NEG); MUCUS URINE FEW /lpf (OCC); NITRITE,URINE NEG (NEG); PH, URINE 6.5 (5.0-8.5); SPERM, URINE MOD; SQUAMOUS EPITHELIAL CELL URINE 1 /hpf (0-5); URINE COLOR YELLOW (YELLW/STRAW); URINE LEUKOCYTE ESTERASE SMALL (NEG)
--- NOTE | 2017-12-13 13:50 | EKG ---
Date Performed: 12/13/2017 Time Performed: 07:47:06 PTAGE: 62 years EKG: SINUS TACHYCARDIA POSSIBLE LEFT ATRIAL ENLARGEMENT MARKED LEFT AXIS DEVIATION LEFT BUNDLE B RANCH BLOCK ABNORMAL ECG PREVIOUS TRACING : 12/12/2017 06.42 Compared to prior tracing, left bundle branch block has inc reased since prior tracing. Rate is now tachycardic. Clinical correlation is recommended. DOCTOR: Shubham Weir Interpretating Date/Time 12/13/2017 13:54:33
--- NOTE | 2017-12-13 13:51 | EKG ---
Date Performed: 12/13/2017 Time Performed: 08:55:26 PTAGE: 62 years EKG: CONSIDER ACUTE ST ELEVATION [place] Atrial fibrillation with intermittent conduction def ect. IV conduction defect LATERAL INFARCT - POSSIBLY ACUTE ANTERIOR INFARCT - POSSIBLY AC TEAGAN Low QRS voltages in limb leads Abnormal ECG PREVIOUS TRACING : 12/13/2017 07.47 Rate has slowed since prior tracing. Rhythm appears to be s inus. QRS remains wide. Cannot rule out an occurring injury. Clinical correlation is recommended. DOCTOR: Shubham Weir Interpretating Date/Time 12/13/2017 13:50:43
--- NOTE | 2017-12-13 14:33 | MG ---
cc: Judi Ureña MD EEG NUMBER: [id number] REFERRING PROVIDER: Dr. Jozef Garrett ROOM: 509 INDICATION FOR STUDY: With photic stimulation, 5 mcg of Diprivan, intubated, withdrew to deep tactile stimulation on both lower extremities only. Admitted with increased weakness, right upper and right lower. Went into respiratory arrest yesterday, heart rate in the 140s, then into PEA. ACLS initiated. CT shows acute infarct in the left temporal lobe without hemorrhage. MEDICATIONS: On aspirin, Prozac, lipitor, gabapentin, Pravachol and Remeron and others. DESCRIPTION OF RECORD: The patient, of note, has ____. Low-amplitude EEG predominantly of what looks to be 2-3 Hz at best. Some myogenic artifact noted as well. EKG looks possibly a paced rhythm. No epileptiform features. Photic stimulation at the end of the recording does not show any driving response. IMPRESSION: Abnormal electroencephalogram due to moderate slowing of background, may be due to encephalopathic process versus other to be determined, but no epileptic activity. Judi Ureña MD [place] , 02:07 PM , 02:32 PM
--- NOTE | 2017-12-13 14:53 | PD.PROCEDR ---
Central Line Procedure REASON FOR PROCEDURE Central venous access PROCEDURE PERFORMED Central line placement: Left femoral vein CONSENT Informed consent not obtained as this was an emergent procedure following cardiac arrest ANESTHESIA Local injection of 1% Lidocaine DESCRIPTION OF THE PROCEDURE The patient was placed in supine, mild Trendelenburg position. The area was exposed and cleansed with ChloraPrep, times two. Large sterile drape was used to cover the patient, with the site exposed, under sterile conditions including cap, face mask, sterile gown, and sterile gloves. On single attempt, the introducer needle was inserted with negative pressure in syringe and venous flash was obtained. The guide wire was then advanced without any restriction and the needle was removed. The dilator was used without any complications. Using Seldinger technique a 20 cm antimicrobial coated triple-lumen catheter was advanced over the guide wire to a depth of 19 centimeters. The guide wire was removed. All ports were aspirated with dark venous blood return and flushed easily with sterile saline. All ports were capped. Antibiotic disc was placed around central line at puncture site. The central line was secured to the skin with a StatLock. The area was bandaged with sterile see-through central line bandage. RADIOLOGICAL DATA Ultrasound guidance was used to locate left femoral vein. COMPLICATIONS: No apparent complications ESTIMATED BLOOD LOSS: Less than 1 cc. Eric Celaya MD December 13, 2017 14:53
--- NOTE | 2017-12-13 14:54 | PD.PROCEDR ---
Procedure Note Procedure Procedure: Left axillary arterial catheter placement with ultrasound guidance Preop diagnosis: Cardiac arrest, cardiogenic shock Postop diagnosis: Same Anesthesia: 1% lidocaine for local infiltration anesthesia Procedure: After sterile prepping and draping using 1% lidocaine for local infiltration anesthesia, left axillary artery was visualized using ultrasound vessel finder and was cannulated using an introducer needle with bright pulsatile blood return. A guidewire was passed through the introducer needle without any resistance and the needle was then removed. A 12 cm 20-gauge arterial catheter was passed over the guidewire by modified Seldinger's technique up to the 12 cm abraham and after removal of guidewire catheter was connected to transducer tubing with good waveform being obtained on the monitor. Biopatch was applied to the insertion site and catheter was sutured in place. Sterile Bi0-occlusive dressing was applied to the site. Patient tolerated the procedure well with no immediate competitions noted. Eric Celaya MD December 13, 2017 14:54
--- NOTE | 2017-12-13 14:55 | PD.PROCEDR ---
Procedure Note Procedure Responded to CODE BLUE cardiac arrest code activation CPR/ACLS protocol initiated. Patient had return of spontaneous circulation and was subsequently transferred to ICU. Please see code sheet for details. Eric Celaya MD December 13, 2017 14:55
--- NOTE | 2017-12-13 14:56 | PD.PROCEDR ---
Procedure Note Procedure Preop diagnosis: V. tach/cardiac arrest Postop diagnosis: Same Anesthesia used: None as patient in cardiac arrest Procedure: CPR/ACLS protocol ongoing. Patient initially in PEA arrest. Subsequently he went into V. tach. Patient was defibrillated using 200 J DC shock x1 and converted to sinus rhythm. CPR/ACLS protocol was continued. Please see ACLS code sheet for details. Eric Celaya MD December 13, 2017 14:56
[2017-12-13] MEDS ORDERED: LORazepam 2 MG/ML VIAL IV PUSH ONE ×2 (15:45→16:00)
[2017-12-13] MEDS ORDERED: MORPHINE SULFATE 8 MG/ML INJ IV PUSH ONE (15:45)
[2017-12-13] MEDS ORDERED: MORPHINE SULFATE 4 MG/ML INJ IV PUSH ONE (16:00)
[2017-12-13] MEDS ORDERED: LORazepam 2 MG/ML VIAL IV PUSH PRN ×3 (16:15)
[2017-12-13] MEDS ORDERED: ACETAMINOPHEN 650 MG SUPP RECTAL PRN (16:15)
[2017-12-13] MEDS ORDERED: MORPHINE SULFATE 4 MG/ML INJ IV PUSH PRN (16:15)
[2017-12-13] MEDS ORDERED: FUROSEMIDE 20 MG/2 ML VIAL IV PUSH PRN (16:15)
[2017-12-13] MEDS ORDERED: BISACODYL 10 MG SUPP RECTAL PRN (16:15)
[2017-12-13] MEDS ORDERED: MORPHINE SULFATE 8 MG/ML INJ IV PUSH PRN (16:15)
--- NOTE | 2017-12-13 16:53 | PD.CONS ---
Consult Service Palliative Care . Consult Requested By Dr. Brayan Celaya . Primary Care Physician Angel Liu MD . Reason for Consultation a. To assist with evaluation and management of symptoms including: dyspnea ; encephalopathy b. To assist medical decision maker(s) with: better understanding of current medical conditions; weighing benefits/burdens of medical treatment options; making medical treatment decisions. . HPI History of Present Illness Mr. Castro is an unfortunate 62 y/o male with a long history of ischemic heart disease which, per his , has included 14 myocardial infarction; multiple stent procedures; 3-vessel CABG in 1997; 10 years of cardiac disability; and an implanted defibrillator. The patient was primarily homebound, would ambulate with a cane, and would become SOB just walking from bed to bathroom. The patient was brought to the ED the early AM of 12/12/17 after he had difficulty getting up and then developed progressive right sided weakness. A stroke alert was called in the ED. Though he was faccid on the right upon ER arrival, when he returned from CT he had nearly complete return of function. He did not receive tPA. The patient had been on anticoagulation from 2004 (initially warfarin, then Eliquis) but was stopped by his pulverizer about 2 years ago. No known hx of atrial fibrillation. 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 The patient was seen by cardiology and neurology. On the morning of 12/13/17 , the patient had the sudden onset of respiratory distress. Critical care was consulted. The rapid response team was activated. The patient was emergently intubated and placed on mechanical ventilation. Following intubation, he suffered a PEA cardiac arrest. ACLS protocl was intitated. There was return of spontaneous criculation and the patient was started on pressor support and transferred to intensive care. In the ICU, he suffered a second PEA cardiac arrest and once again the ACLS protocol was initiated with eventual return of spontaneous circulation. A left femoral central line and a left axillary arterial line were placed. . Function/Cognitive Trajectory Family reports that the patient experienced his first WA at age 33. He has had 13 other MIs, CABG, stents, AICD placement, and multiple hospitalizations. He has had AICD firings -- they tell me on one day the unit fired about 43 times. He rarely leaves the home. He has not been on home 02 therapy, but would get SOB ambulating from bed to bathroom. He would use a cane for walking longer distances around the house. The patient has been on disability over 10 years due to his cardiac condition. The patient had frequent neuropathic pain in his lower extremities and lower back pain. Family reports he had previously been using oxycodone for about 8 years, but stopped "cold turkey" when it began to impact him cognitively and lower his BP. In spite of his very severe CAD, the patient continued to smoke about 1 ppd up until about 2 months ago. . Review of Systems ROS Limitations: Clinical Condition (Patient is intubated, sedated and unable to provide his own ROS. ROS taken from available family and medical record. ) Constitutional: COMPLAINS OF: Diaphoretic episodes, Fatigue, Dizziness, Night Sweats, Pain Endocrine: DENIES: Polyuria, Polyphagia Eyes: DENIES: Blurred vision, Eye pain, Vision loss Ears, nose, mouth, throat: COMPLAINS OF: Hearing loss Respiratory: COMPLAINS OF: Shortness of breath, DENIES: Cough, Snoring, Wheezing, Hemoptysis Cardiovascular: COMPLAINS OF: Chest pain, Palpitations, Syncope, Dyspnea on Exertion, Lower Extremity Edema, DENIES: Claudication Gastrointestinal: COMPLAINS OF: Diarrhea, DENIES: Black stools, Bloody stools, Constipation, Nausea, Vomiting, Difficulty Swallowing, Vomiting blood Genitourinary: DENIES: Urgency, Hematuria, Dysuria, Dribbling Musculoskeletal: COMPLAINS OF: Joint pain, Muscle aches, Back pain, DENIES: Neck pain Hematologic/Lymphatics: COMPLAINS OF: History of transfusions, DENIES: Bruising Immunologic/Allergic: DENIES: Eczema Neurologic: COMPLAINS OF: Abnormal gait, Headache, Paresthesias, Poor Balance, DENIES: Localized weakness, Seizures Psychiatric: COMPLAINS OF: Anxiety, Mood changes, Depression, DENIES: Confusion Past Family Social History Coded Allergies: No Known Allergies (Unverified Adverse Reaction, Unknown, 12/12/17) Past Medical History Coronary artery disease Old myocardial infarction (x14) Coronary stents Hyperlipidemia Hypertension AICD present Diabetes mellitus type 2 Prior stroke . Past Surgical History CABGx3 AICD Tonsillectomy . Reported Medications Pre-hospital medications included the following: Vitamin D-1000 (Cholecalciferol) 1,000 Unit Tab 1,000 Units PO DAILY Probiotic (Lactobacillus Acidophilus) 10 Billion Cell Cap 3 Cap PO DAILY Mirtazapine 7.5 Mg Tab 7.5 Mg PO HS Vitamin D-1000 (Cholecalciferol) 1,000 Unit Tab 1,000 Units PO DAILY Fluoxetine (Fluoxetine HCl) 20 Mg Capsule 20 Mg PO DAILY Lisinopril 5 Mg Tab 5 Mg PO DAILY Aspirin Children's (Aspirin) 81 Mg Chew 81 Mg CHEW DAILY Nitrostat SL (Nitroglycerin) 0.4 Mg Subl 0.4 Mg SL DIRECTED PRN Gemfibrozil 600 Mg Tab 600 Mg PO BIDAC Gabapentin 300 Mg Cap 300 Mg PO BID Carvedilol 25 Mg Tab 25 Mg PO BID Atorvastatin (Atorvastatin Calcium) 40 Mg Tab 40 Mg PO HS . Current Medications Medications (Trade) Dose Ordered Sig/Ra Route Start Time Stop Time Status Last Admin (Morphine Inj) 6 mg Q30M PRN IV PUSH 12/13/17 16:15 (Morphine Inj) 8 mg Q30M PRN IV PUSH 12/13/17 16:15 (Ativan Inj) 1 mg Q4HR IV PUSH 12/13/17 20:00 (Ativan Inj) 1 mg Q1H PRN IV PUSH 12/13/17 16:15 (Ativan Inj) 2 mg Q1H PRN IV PUSH 12/13/17 16:15 (Ativan Inj) 2 mg Q15M PRN IV PUSH 12/13/17 16:15 (Tylenol Supp) 650 mg Q4H PRN RECTAL 12/13/17 16:15 (Lasix Inj) 20 mg Q6H PRN IV PUSH 12/13/17 16:15 (Dulcolax Supp) 10 mg DAILY PRN RECTAL 12/13/17 16:15 . Family History Both sides of the family had severe and early onset ischemic heart disease. the patient's father was withdrawn from life support for his cardiac problems. Father also suffered a stroke. . Substance Use Tobacco: 1 ppd smoker most of his adult life. Quit about 2 months prior to this admission Alcohol: No history of abuse Prescription med abuse: No history of abuse. Used prescription oxycodone as prescribed for about 8 years. Illicits: No known use of illicits. . Psychosocial History Patient is originally from [place], [place]. He has lived in [facility] for about 17 years. He completed high school and some college classes. He spent 4 years in the [employer] --- no combat. 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 He also worked in [employer] and [employer] departments. He has been on disability over 10 years for his cardiac disease. The patient was once. He has been to Mary Mcdonald for 15 years. They have no children Patient's mother is alive and present today. Patient has a brother and a sister who are alive, well, and present today. . Spiritual/Cultural Factors Patient comes from a Buddhism tradition. Yarsanism and spirituality have not played an important role in his life. Family have met our hospital [employer] and have requested that he remains involved for spiritual support. . Living Will: Never completed Health Care Surrogate: Never completed Durable Power of Rn Clinical Coordinator: Never completed Date completed: Advance directives have never been completed. . Health Care Surrogate(s): There has been no written designation of health care surrogacy. . Documented care wishes: There has been no written documentation of health care goals / preferences. . Today's verbally stated goals: Patient is unable to verbally state his own health care goals ./ preferences. There is no reasonable probability that he will be able to state those goals/ preferences. . Family/friends goals: Family feels strongly that patient would not want to continue aggressive care given his poor odds for meaningful recovery. They report that patient was quite dissatisfied with his current functional status. He had told family not to prolong him on life support. He told family that he would rather "be shot" then live in a half-way or be bedbound and dependent. Family reports that he had suffered a long time. They report he would tell us to remove the machines now if we were awake and able to do so. . Ethical and Legal Issues Patient is incapacitated to make his own health care decisions. There is no reasonable proabaility that he will regain capacity to make his own health care decisions. . Physical Exam Vital Signs Date Time Temp Pulse Resp B/P (MAP) Pulse Ox O2 Delivery O2 Flow Rate FiO2 12/13/17 14:00 96 12/13/17 13:00 139 12/13/17 12:00 98.5 63 24 160/85 (110) 100 12/13/17 12:00 160 12/13/17 11:00 132 12/13/17 10:00 137 12/13/17 09:27 97 100 12/13/17 08:39 77 100 5/29/18 07:23 135 30 185/115 (138) 77 12/13/17 04:00 98.6 61 20 119/56 (77) 93 12/13/17 00:00 98.2 61 20 131/65 (87) 95 12/12/17 20:00 97.7 54 20 121/58 (79) 96 12/12/17 16:57 53 . Exam CONSTITUTIONAL/GENERAL: This is an adequately nourished patient, sedated, intubated, mechancially ventilated, unresponsive in an MICU bed. TUBES/LINES/DRAINS: femoral venous catheter; arterial line; cortez catheter; Orotracheal tube; NG tube SKIN: No jaundice, rashes, or lesions. No wounds seen anteriorly. Skin temperature appropriate. Not diaphoretic. HEAD: Atraumatic. Normocephalic. EYES: Pupils equal and round and reactive. Unable to evaluate EOMs. No scleral icterus. No injection or drainage. Fundi not examined. ENT: Unable to evaluate hearing. . Nose without bleeding or purulent drainage. Throat without visible erythema, exudates, masses, or lesions. NECK: Trachea midline. Supple, nontender. No palpable thyroid enlargement or nodularity. CARDIOVASCULAR: Frequent PVCs on monitor without murmurs, gallops, or rubs. No JVD. Peripheral pulses symmetric but weak RESPIRATORY/CHEST: Symmetric, unlabored respirations on vent. Breath sounds equal bilaterally but globally diminished. . No wheezes, rales, or rhonchi. GASTROINTESTINAL: Abdomen soft, non-tender, nondistended. No hepato-splenomegaly , or palpable masses. No guarding. Bowel sounds present. GENITOURINARY: Without palpable bladder distension. Cortez catheter in place. MUSCULOSKELETAL: Extremities without clubbing, cyanosis, or edema. No mottling or clubbing. LYMPHATICS: No palpable cervical or supraclavicular adenopathy. NEUROLOGICAL: Sedated. Unresponsive. No spontaneous movements noted. Gag and corneal reflexes are present. PSYCHIATRIC: Unable to assess due to level of responsiveness. . Diagnostic Tests Laboratory Laboratory Tests Test 12/12/17 04:30 12/12/17 06:08 12/12/17 08:38 12/12/17 10:15 Bedside Hemoglobin 13.6 G/DL (13.0-17.0) Bedside Hematocrit 40.0 % (39.0-51.0) Prothrombin Time 10.1 SEC (9.8-11.6) Prothromb Time International Ratio 1.0 RATIO Activated Partial Thromboplast Time 26.1 SEC (24.3-30.1) Fibrinogen 317 mg/dL (227-377) Bedside Sodium 142 MMOL/L (137-144) Bedside Potassium 4.1 MMOL/L (3.6-5.0) Bedside Chloride 110 MMOL/L (102-111) Bedside Blood Urea Nitrogen 25 MG/DL (5-21) Bedside Creatinine 0.9 MG/DL (0.6-1.3) Bedside Glucose 118 MG/DL (68-110) Total Creatine Kinase 82 U/L (39-308) Troponin I 0.30 NG/ML (0.02-0.05) 0.19 NG/ML (0.02-0.05) White Blood Count 8.1 TH/MM3 (4.0-11.0) Red Blood Count 4.37 MIL/MM3 (4.50-5.90) Hemoglobin 13.9 GM/DL (13.0-17.0) Hematocrit 41.5 % (39.0-51.0) Mean Corpuscular Volume 95.1 FL (80.0-100.0) Mean Corpuscular Hemoglobin 31.9 PG (27.0-34.0) Mean Corpuscular Hemoglobin Concent 33.5 % (32.0-36.0) Red Cell Distribution Width 13.2 % (11.6-17.2) Platelet Count 212 TH/MM3 (150-450) Mean Platelet Volume 10.2 FL (7.0-11.0) Neutrophils (%) (Auto) 50.4 % (16.0-70.0) Lymphocytes (%) (Auto) 37.2 % (9.0-44.0) Monocytes (%) (Auto) 8.5 % (0.0-8.0) Eosinophils (%) (Auto) 3.3 % (0.0-4.0) Basophils (%) (Auto) 0.6 % (0.0-2.0) Neutrophils # (Auto) 4.1 TH/MM3 (1.8-7.7) Lymphocytes # (Auto) 3.0 TH/MM3 (1.0-4.8) Monocytes # (Auto) 0.7 TH/MM3 (0-0.9) Eosinophils # (Auto) 0.3 TH/MM3 (0-0.4) Basophils # (Auto) 0.0 TH/MM3 (0-0.2) CBC Comment DIFF FINAL Differential Comment Erythrocyte Sedimentation Rate 8 mm/hr (0-20) Urine Color LIGHT-YELLOW (YELLW/STRAW) Urine Turbidity CLEAR (CLEAR) Urine pH 6.5 (5.0-8.5) Urine Specific [place] 1.050 (1.002-1.035) Urine Protein NEG mg/dL (NEG-TRACE) Urine Glucose (UA) NEG mg/dL (NEG) Urine Ketones NEG mg/dL (NEG) Urine Occult Blood NEG (NEG) Urine Nitrite NEG (NEG) Urine Bilirubin NEG (NEG) Urine Urobilinogen LESS THAN 2.0 MG/DL (LESS Urine Leukocyte Esterase NEG (NEG) Urine RBC LESS THAN 1 /hpf (0-3) Urine WBC LESS THAN 1 /hpf (0-5) Urine Squamous Epithelial Cells <1 /hpf (0-5) Urine Mucus FEW /lpf (OCC) Urine Opiates Screen NEG (NEG) Urine Barbiturates Screen NEG (NEG) Urine Amphetamines Screen NEG (NEG) Urine Benzodiazepines Screen NEG (NEG) Urine Cocaine Screen NEG (NEG) Urine Cannabinoids Screen NEG (NEG) Hemoglobin A1c 6.1 % (4.3-6.0) Test 12/12/17 11:30 12/12/17 15:07 12/12/17 16:44 12/12/17 21:46 Rapid Plasma Reagin NON-REACTIVE (NON-REACTVE) Prothrombin Time 10.0 SEC (9.8-11.6) Prothromb Time International Ratio 1.0 RATIO Activated Partial Thromboplast Time 25.5 SEC (24.3-30.1) 40.8 SEC (24.3-30.1) Aspartate Amino Transf (AST/SGOT) 15 U/L (15-37) Alanine Aminotransferase (ALT/SGPT) 16 U/L (12-78) Troponin I 0.30 NG/ML (0.02-0.05) Vitamin B12 Level 509 PG/ML (193-986) Free Thyroxine 0.95 NG/DL (0.76-1.46) Thyroid Stimulating Hormone 3rd Gen 1.580 uIU/ML (0.358-3.740) Test 12/13/17 03:45 12/13/17 07:30 12/13/17 08:50 12/13/17 09:14 White Blood Count 7.9 TH/MM3 (4.0-11.0) Red Blood Count 4.32 MIL/MM3 (4.50-5.90) Hemoglobin 13.8 GM/DL (13.0-17.0) Hematocrit 40.9 % (39.0-51.0) Mean Corpuscular Volume 94.7 FL (80.0-100.0) Mean Corpuscular Hemoglobin 31.8 PG (27.0-34.0) Mean Corpuscular Hemoglobin Concent 33.6 % (32.0-36.0) Red Cell Distribution Width 13.2 % (11.6-17.2) Platelet Count 201 TH/MM3 (150-450) Mean Platelet Volume 9.3 FL (7.0-11.0) Neutrophils (%) (Auto) 52.8 % (16.0-70.0) Lymphocytes (%) (Auto) 36.5 % (9.0-44.0) Monocytes (%) (Auto) 7.3 % (0.0-8.0) Eosinophils (%) (Auto) 2.9 % (0.0-4.0) Basophils (%) (Auto) 0.5 % (0.0-2.0) Neutrophils # (Auto) 4.2 TH/MM3 (1.8-7.7) Lymphocytes # (Auto) 2.9 TH/MM3 (1.0-4.8) Monocytes # (Auto) 0.6 TH/MM3 (0-0.9) Eosinophils # (Auto) 0.2 TH/MM3 (0-0.4) Basophils # (Auto) 0.0 TH/MM3 (0-0.2) CBC Comment DIFF FINAL Differential Comment Activated Partial Thromboplast Time 40.0 SEC (24.3-30.1) Blood Urea Nitrogen 15 MG/DL (7-18) Creatinine 0.92 MG/DL (0.60-1.30) Random Glucose 91 MG/DL (74-106) Total Protein 6.7 GM/DL (6.4-8.2) Albumin 3.4 GM/DL (3.4-5.0) Calcium Level 9.0 MG/DL (8.5-10.1) Alkaline Phosphatase 77 U/L (45-117) Aspartate Amino Transf (AST/SGOT) 16 U/L (15-37) Alanine Aminotransferase (ALT/SGPT) 16 U/L (12-78) Total Bilirubin 0.5 MG/DL (0.2-1.0) Sodium Level 142 MEQ/L (136-145) Potassium Level 4.0 MEQ/L (3.5-5.1) Chloride Level 108 MEQ/L (98-107) Carbon Dioxide Level 23.5 MEQ/L (21.0-32.0) Anion Gap 11 MEQ/L (5-15) Estimat Glomerular Filtration Rate 83 ML/MIN (>89) Blood Gas Puncture Site LT RADIAL LT RADIAL Blood Gas Patient Temperature 98.6 98.6 Blood Gas HCO3 18 mmol/L (22-26) 32 mmol/L (22-26) Blood Gas Base Excess -11.1 mmol/L (-2-2) 5.7 mmol/L (-2-2) Blood Gas Oxygen Saturation 90 % (90-100) 94 % (90-100) Arterial Blood pH 7.05 (7.380-7.420) 7.31 (7.380-7.420) Arterial Blood Partial Pressure CO2 68 mmHg (38-42) 64 mmHg (38-42) Arterial Blood Partial Pressure O2 92 mmHg (61-120) 92 mmHg (61-120) Arterial Blood Oxygen Content 19.3 Vol % (12.0-20.0) 16.5 Vol % (12.0-20.0) Arterial Blood Carboxyhemoglobin 0.3 % (0-4) 0.5 % (0-4) Arterial Blood Methemoglobin 1.1 % (0-2) 1.6 % (0-2) Blood Gas Hemoglobin 15.2 G/DL (12.0-16.0) 12.4 G/DL (12.0-16.0) Oxygen Delivery Device NRB VENTILATOR Blood Gas Liter Flow 15 L/M Blood Gas Inspired Oxygen 100 % 100 % Blood Gas Ventilator Setting PRVC24/550/1.2/+15 Triglycerides Level 170 MG/DL (42-150) Cholesterol Level 101 MG/DL (120-200) LDL Cholesterol 41 MG/DL (0-99) HDL Cholesterol 26.0 MG/DL (40.0-60.0) Cholesterol/HDL Ratio 3.88 RATIO Test 12/13/17 09:15 12/13/17 09:32 12/13/17 11:10 White Blood Count 9.4 TH/MM3 (4.0-11.0) Red Blood Count 4.05 MIL/MM3 (4.50-5.90) Hemoglobin 12.8 GM/DL (13.0-17.0) Hematocrit 39.2 % (39.0-51.0) Mean Corpuscular Volume 96.7 FL (80.0-100.0) Mean Corpuscular Hemoglobin 31.7 PG (27.0-34.0) Mean Corpuscular Hemoglobin Concent 32.8 % (32.0-36.0) Red Cell Distribution Width 13.8 % (11.6-17.2) Platelet Count 222 TH/MM3 (150-450) Mean Platelet Volume 9.5 FL (7.0-11.0) Neutrophils (%) (Auto) 58.1 % (16.0-70.0) Lymphocytes (%) (Auto) 36.7 % (9.0-44.0) Monocytes (%) (Auto) 2.8 % (0.0-8.0) Eosinophils (%) (Auto) 2.0 % (0.0-4.0) Basophils (%) (Auto) 0.4 % (0.0-2.0) Neutrophils # (Auto) 5.5 TH/MM3 (1.8-7.7) Lymphocytes # (Auto) 3.5 TH/MM3 (1.0-4.8) Monocytes # (Auto) 0.3 TH/MM3 (0-0.9) Eosinophils # (Auto) 0.2 TH/MM3 (0-0.4) Basophils # (Auto) 0.0 TH/MM3 (0-0.2) CBC Comment DIFF FINAL Differential Comment Prothrombin Time 10.6 SEC (9.8-11.6) Prothromb Time International Ratio 1.0 RATIO Activated Partial Thromboplast Time 24.7 SEC (24.3-30.1) Blood Urea Nitrogen 15 MG/DL (7-18) Creatinine 1.58 MG/DL (0.60-1.30) Random Glucose 260 MG/DL (74-106) Total Protein 5.5 GM/DL (6.4-8.2) Albumin 2.6 GM/DL (3.4-5.0) Calcium Level 8.7 MG/DL (8.5-10.1) Phosphorus Level 7.2 MG/DL (2.5-4.9) Magnesium Level 2.8 MG/DL (1.5-2.5) Alkaline Phosphatase 72 U/L (45-117) Aspartate Amino Transf (AST/SGOT) 71 U/L (15-37) Alanine Aminotransferase (ALT/SGPT) 45 U/L (12-78) Total Bilirubin 0.4 MG/DL (0.2-1.0) Sodium Level 142 MEQ/L (136-145) Potassium Level 4.2 MEQ/L (3.5-5.1) Chloride Level 103 MEQ/L (98-107) Carbon Dioxide Level 24.2 MEQ/L (21.0-32.0) Anion Gap 15 MEQ/L (5-15) Estimat Glomerular Filtration Rate 44 ML/MIN (>89) Lactic Acid Level 7.8 mmol/L (0.4-2.0) Total Creatine Kinase 75 U/L (39-308) Troponin I 0.36 NG/ML (0.02-0.05) B-Type Natriuretic Peptide 466 PG/ML (0-100) Urine Color YELLOW (YELLW/STRAW) Urine Turbidity HAZY (CLEAR) Urine pH 6.5 (5.0-8.5) Urine Specific [place] 1.046 (1.002-1.035) Urine Protein 100 mg/dL (NEG-TRACE) Urine Glucose (UA) 70 mg/dL (NEG) Urine Ketones NEG mg/dL (NEG) Urine Occult Blood MOD (NEG) Urine Nitrite NEG (NEG) Urine Bilirubin NEG (NEG) Urine Urobilinogen LESS THAN 2.0 MG/DL (LESS Urine Leukocyte Esterase SMALL (NEG) Urine RBC 28 /hpf (0-3) Urine WBC 12 /hpf (0-5) Urine Squamous Epithelial Cells 1 /hpf (0-5) Urine Bacteria RARE /hpf (NONE) Urine Hyaline Casts 2 /lpf (RARE) Urine Mucus FEW /lpf (OCC) Urine Sperm MOD (NONE) Microscopic Urinalysis Comment CULTURE INDICATED Blood Gas Puncture Site ART LINE Blood Gas Patient Temperature 98.6 Blood Gas HCO3 20 mmol/L (22-26) Blood Gas Base Excess -4.2 mmol/L (-2-2) Blood Gas Oxygen Saturation 95 % (90-100) Arterial Blood pH 7.37 (7.380-7.420) Arterial Blood Partial Pressure CO2 36 mmHg (38-42) Arterial Blood Partial Pressure O2 103 mmHg (61-120) Arterial Blood Oxygen Content 18.4 Vol % (12.0-20.0) Arterial Blood Carboxyhemoglobin 0.5 % (0-4) Arterial Blood Methemoglobin 1.5 % (0-2) Blood Gas Hemoglobin 13.6 G/DL (12.0-16.0) Oxygen Delivery Device VENTILATOR Blood Gas Ventilator Setting PRVC24/550/1.2/+10 Blood Gas Inspired Oxygen 100 % . Result Diagram: 12/13/1715 12/13/17 0915 Microbiology Microbiology Date/Time Source Procedure Growth Status 12/13/17 09:32 Urine Clean Catch Urine Culture Pending Received Imaging Last Impressions Head CTA 12/13/17 0000 Signed Impressions: CONCLUSION: 1. Improvement in blood flow to the left MCA since the prior exam and there ap pears to be a small filling defect probably a blood clot involving the distal b ranch of the M2 on the left side which was not clearly demonstrated on the prio r exam. Head CT 12/13/17 0000 Signed Impressions: CONCLUSION: 1. Area of acute infarction has developed in the left temporal lobe not identi fied previously without any hemorrhage or mass effect. Chest X-Ray 12/13/17 0000 Signed Impressions: CONCLUSION: 1. Endotracheal tube 2 cm above the jennifer. 2. Cardiomegaly and left-sided pacemaker/defibrillator. Neck CTA 12/12/17 0434 Signed Impressions: CONCLUSION: 1. Atherosclerotic plaquing without any significant stenosis. . Procedures * Intubation/mechanical ventilation * femoral venous catheter * arterial line . Patient/Family Conference Present at Family Conference: , mother, brother, [id number]. . Family Conference Time (mins): 55 Family Conference Location: Consult Room Issues Discussed: * Palliative care role, purpose, approach * Additional medical, psychosocial, and spiritual history * Patients general health, functional status, and cognitive changes in the months leading up to the current hospitalization * Family understanding of the current medical problems * Family understanding of prognosis * Patients goals of care as best understood from conversations and/or values * Current medical treatment options and benefits/burdens of those options * Likely scenarios comparing ongoing aggressive care with a transition to comfort measures only * Questions answered to the best of my ability * Palliative care contact information provided . Assessment and Plan Disease Oriented Problem List: (1) Cardiac arrest (2) Ischemic cardiomyopathy (3) Coronary artery disease (4) CVA (cerebral vascular accident) (5) Respiratory failure Symptom Scale: (1) Pain 0-10 Scale: Unable to quantify Comment: Long history of low back pain; lower extremity neuropathy; and intermittent chest pains. These had been controlled for years with oxycodone. Has been off chornic opiates for a few years. Other current sources of pain might include intubations; vascual access catheters; urinary catheter; SCds; prolonged bedbound status. . (2) Dyspnea 0-10 Scale: Unable to quantify Comment: Long history of smoking with probably element of COPD. . (3) Encephalopathy 0-10 Scale: Unable to quantify Comment: Encephalopathy may be multi-factorial involving both stroke and possible hypoxic event from the two PEA arrests. . Pertinent Non-Medical Issues Psychosocial: Good psychosoical support from his of 15 years. Also, mother, brother, sister, and sister in law are all presetn and involved. Spiritual: Yarsanism and spirituality have not been an important part of his life. is Anglican. [employer] has been involved and family is appreciative of his spiritual support. Legal: No advance directives. is proxy. Ethical issues impacting care: Patient is incapacitated. There is no reasonable probability that he will recover capacity to make his own healthcare decisions. . Important Contacts Jailene Castro (; proxy) [phone] Karly Castro (mother) [phone] . Prognosis Patient has a long history of ischemic cardiomyopathy and has been on disability for his cardiac problems for 10 years with poor functional status at home. He has suffered a TIA which brought him to the hospital. He had return of neurological function, then suffered two PEA arrests requiring ACLS protocol. He is now intubated, mechanically ventilated, minimally responsive. Chances of meanignful cardiac recover are felt to be minimal. . Code Status: No Code Plan == Code Status : NO CODE == Decision making: Patient is incapacitated to make his own health care decisions. There is no reasonable probability that he will recover capacity to make those decisions. is the legal proxy. == Goals of medical treatment: Family is quite clear that patient would NOT want ongoing aggressive care with his current condition and prognosis. , mother, brother, and [id number] say that patient has had multiple conversations and would not want to be on machines at this time. He was unhappy with his pre-hospitalization functional status and would not be able to tolerate a further decline. He refused to consider being more dependent, living in a half-way, or being kept alive by machines. Family is clear that the patient's goals/wishes would best be honored by foregoing further aggressive care; transitioning to comfort measures only; and compassionately withdrawing life support. == Symptoms: * Pain: See above. * Dyspnea: See above * Encephalopathy: == Case discussed with Dr. Celaya == [employer] consulted for case. == Once sister arrives from the [facility], family has requested that life support be compassionately withdrawn. == The patient's father had a very similar end of life course. He was hospitalized for end stage heart disease and family had withdrawn him from life support. == Palliative care will continue to follow to assist with symptom management and to further clarify goals of medical treatment as the clinical course evolves. . Time Spent Total Floor Time (mins): 100 (Total floor time included chart review; physical exam; case discussion with Dr. Celaya; above referenced family conference; collaboration with primary nurse; return to floor to write orders and residential child care counselor family regarding detail of vent withdrawal; and documentation.) Face to Face Time (mins): 20 >50% Counseling/Coord of Care: Yes Thank you for the opportunity to participate in the care of Mr. Castro. . Attestation To help prompt me to consider important information that might be impacting today's encounter and assessment, information from prior notes written by myself or my colleagues may have been "brought forward" into today's note. My signature on this note, however, is an attestation that I personally performed the exam, history, and/or decision-making noted today, and, unless otherwise indicated, the interactions with patient, family, and staff as well as the review of records all occurred today. I also attest that the listed assessment and stated plan reflect my best clinical judgment today based on the combination of historical information, prior notes, and today's exam/ interactions. When time spent is documented, it refers only to time spent today by the signer, or if indicated, combined time spent today by collaborating physician/nurse practitioner. . Ryan Alegre MD December 13, 2017 16:53
[2017-12-13] MEDS ORDERED: LORazepam 2 MG/ML VIAL IV PUSH SCH (20:00)
== END 2017-12-13 20:22 | disposition expired | DRG 64 ==
LOC: NEPC 04:31 → NEDA 06:19 → N05A 12:29 → HIME 12-13 08:30
PROVIDERS: ADMIT Hospitalist; ATTEND Hospitalist
PROC: 0BH17EZ Insertion of Endotracheal Airway into Trachea, Via Natural or Artificial Opening (ICD-10-PCS; principal; 2017-12-13)
PROC: 04HY32Z Insertion of Monitoring Device into Lower Artery, Percutaneous Approach (ICD-10-PCS; 2017-12-13)
PROC: 5A1935Z Respiratory Ventilation, Less than 24 Consecutive Hours (ICD-10-PCS; 2017-12-13)
PROC: 5A12012 Performance of Cardiac Output, Single, Manual (ICD-10-PCS; 2017-12-13)
PROC: 06HY33Z Insertion of Infusion Device into Lower Vein, Percutaneous Approach (ICD-10-PCS; 2017-12-13)
PROC: 5A2204Z Restoration of Cardiac Rhythm, Single (ICD-10-PCS; 2017-12-13)
DX: I63.9 Cerebral infarction, unspecified (principal); J96.01 Acute respiratory failure with hypoxia; R57.0 Cardiogenic shock; G81.91 Hemiplegia, unspecified affecting right dominant side; E87.2 Acidosis; I47.2 Ventricular tachycardia; I25.10 Atherosclerotic heart disease of native coronary artery without angina pectoris; F17.200 Nicotine dependence, unspecified, uncomplicated; I25.5 Ischemic cardiomyopathy; I10 Essential (primary) hypertension; E11.51 Type 2 diabetes mellitus with diabetic peripheral angiopathy without gangrene; E78.5 Hyperlipidemia, unspecified; I25.2 Old myocardial infarction; Z95.5 Presence of coronary angioplasty implant and graft; Z95.810 Presence of automatic (implantable) cardiac defibrillator; Z79.82 Long term (current) use of aspirin; Z79.899 Other long term (current) drug therapy
CPT/HCPCS: 31500; 36556; 36600; 70450; 70496; 70498; 71045; 76937; 80048; 80053; 80061; 80307; 81001; 82550; 82607; 82805; 82948; 83036; 83605; 83735; 83880; 84100; 84425; 84439; 84443; 84450; 84460; 84484; 85025; 85384; 85610; 85652; 85730; 86038; 86592; 86850; 86900; 86901; 87086; 92950; 93005; 93308; 94002; 95819; 96360; J1644; J2060; J2270; J3010; J7030; J7040; Q9967